=== PATIENT | female | born 1980 | race Caucasian/White ===

== ENCOUNTER 2020-08-30 06:05 | Observation (INO) | payer OTHER, SELFPAY ==
[2020-08-30] VITALS (14 sets, daily range): BP systolic 118–163; BP diastolic 74–118; PULSE 86–127; RESP 16–21; TEMP 36.6–36.8; O2SAT 92–98; BMI 33.3; BMI 32.8
--- NOTE | 2020-08-30 06:20 | PC.NURSE ---
Pt placed in isolation and staff with appropriate PPE in place.
--- NOTE | 2020-08-30 06:26 | XR_ITS ---
PROCEDURE: XR CHEST 2V CLINICAL HISTORY: shortness of air Chest tightness COMPARISON: CR CXR CHEST(2 VIEWS-NOT PORTABLE) from 01/23/2013 FINDINGS: The cardiomediastinal silhouette and pulmonary vascularity are within normal limits. The lungs are clear without infiltrates, suspicious nodules, or pleural effusions. No acute bony abnormalities. IMPRESSION: No acute findings. Dictated by: Nikhil Salcedo MD 08/30/2020 08:45 Nikhil Salcedo MD in [facility] 08/30/2020 08:45
--- NOTE | 2020-08-30 06:46 | PC.NURSE ---
called and spoke with respiratory for inhaler. jaya notified.
--- NOTE | 2020-08-30 06:52 | PC.NURSE ---
Report given to January, RN
[2020-08-30 06:53] LABS: Basophils # 0.1 K/mm3 (0-0.2); Basophils % 0.6 % (0.1-2.0); Eosinophils # 0.3 K/mm3 (0.0-0.4); Eosinophils % 2.8 % (0.1-12.0); Hematocrit 44.4 % (37.0-47.0); Hemoglobin 14.2 g/dL (12.2-16.2); Lymphocytes # 1.9 K/mm3 (0.7-4.5); Lymphocytes % 18.1 % (10-50); Mean Corpuscular Hemoglobin 27.3 pg (27.0-31.2); Mean Corpuscular Volume 85.4 fl (81-99); Mean Platelet Volume 7.6 fl (7.4-10.4); Monocytes # 0.5 K/mm3 (0.1-1.0); Monocytes % 4.6 % (1.7-9.3); Neutrophils # 7.8 K/mm3 (1.8-7.8); Neutrophils % 73.8 % (37.0-80.0); Platelet Count 268 K/mm3 (142-424); White Blood Count 10.6 K/mm3 (4.8-10.8)
--- NOTE | 2020-08-30 07:30 | PC.NURSE ---
Pt to restroom at this time. Covid swab will be delayed. Pt was swabbed prior to dayshift coming and but there was no order for it. order placed at this time.
[2020-08-30 07:34] LABS: Chloride 100 mmol/L (98-107); Potassium 3.7 mmoL/L (3.5-5.1); Sodium 137 mmol/L (136-145)
[2020-08-30 07:37] LABS: Microscopic, Urine URINE MICROSCOPIC (MICROSCOPIC)
[2020-08-30 07:37] LABS: Adenovirus,PCR Not Detected (NotDetected); Anion Gap 17.7 mEq/L (5-15); Blood Urea Nitrogen 12 mg/dl (7-17); Bordetella Pertussis Not Detected (NotDetected); Carbon Dioxide 23 mmol/L (22.0-30.0); Chlamydophila Pneumoniae, PCR Not Detected (NotDetected); Coronavirus 19, PCR Not Detected (NotDetected); Coronavirus 229E Not Detected (NotDetected); Coronavirus NL63 Not Detected (NotDetected); Coronavirus OC43 Not Detected (NotDetected); Coronovirus HKU1,PCR Not Detected (NotDetected); Creatinine Clearance Estimated 133 mL/min (50-200); Estimated Glomerular Filt Rate 79 ml/min (>60); GFR (African American) 96 ML/MIN (>60); Human Metapneumovirus Not Detected (NotDetected); Influenza A, PCR Not Detected (NotDetected); Influenza AH1, 2009 Not Detected (NotDetected); Influenza AH1, PCR Not Detected (NotDetected); Influenza AH3,PCR Not Detected (NotDetected); Influenza B, PCR Not Detected (NotDetected); Mycoplasma Pneumoniae, PCR Not Detected (NotDetected); Parainfluenza 1, PCR Not Detected (NotDetected); Parainfluenza 2, PCR Not Detected (NotDetected); Parainfluenza 3, PCR Not Detected (NotDetected); Parainfluenza 4, PCR Not Detected (NotDetected); Respiratory Syncytial Virus Not Detected (NotDetected)
[2020-08-30 07:38] LABS: Calcium 10.4 mg/dl (8.4-10.2); Glucose 144 mg/dl (74-100)
[2020-08-30 07:48] LABS: Appearance,Urine CLEAR (Clear); Bilirubin,Urine Negative (Negative); Blood, Urine Negative (Negative); Color,Urine YELLOW (Yellow); Glucose,Urine (UA) Negative (Negative); Ketones,Urine Negative (Negative); Leukocyte Esterase,Urine Negative (Negative); Nitrate,Urine Negative (Negative); PH,Urine 5.5 (5.0-8.5); Protein,Urine Negative (Negative); Specific Gravity, Urine <= 1.005 (1.005-1.030); Urobilinogen,Urine 0.2 EU/dl (0.2)
[2020-08-30 07:49] LABS: Urine Pregnancy, HCG Qual. Negative (Negative)
[2020-08-30 07:50] LABS: RBC,Urine Occasional #/hpf (0-3)
[2020-08-30 07:51] LABS: Alanine Aminotransferase 101 U/L (12-78); Albumin Level 4.8 g/dl (3.5-5.0); Alkaline Phosphatase 121 U/L (38-126); Aspartate Amino Transferase 161 U/L (14-36); Bilirubin,Direct 0.2 mg/dl (0.0-0.4); Bilirubin,Indirect 0.5 mg/dL (0.0-0.9); Bilirubin,Total 0.7 mg/dl (0.2-1.3); Bilirubin,Unconjugated 0.5 mg/dL (0.0-1.1); Total Protein,Serum 8.6 g/dl (6.3-8.2)
[2020-08-30 07:55] LABS: Free T4 (Free Thyroxine) 1.43 ng/dl (0.78-2.19)
[2020-08-30 08:05] LABS: Coronavirus 19 IgG Antibody Negative (Negative); Coronavirus 19 IgM Antibody Negative (Negative)
[2020-08-30 08:08] LABS: Thyroid Stimulating Hormone 5.71 uIU/mL (0.465-4.68)
--- NOTE | 2020-08-30 08:15 | HMH.EDGENADL ---
ED Disposition Clinical Impression: Pneumonia Qualifiers: Pneumonia type: due to Mycoplasma pneumoniae Laterality: right Lung location: lower lobe of lung Qualified Code(s): J15.7 - Pneumonia due to Mycoplasma pneumoniae Disposition: Admitted as Observation Condition on Discharge: Fair Time of Disposition: 11:23 - Critical Care Critical Care Time: No Attestation: On 08/30/20, the high probability of a clinically significant, sudden or life threatening deterioration of the following system(s) required my full and direct attention, intervention and personal management. The time I documented below is in addition to time spent performing reported procedures but includes the following listed in this critical care notation. Medical Decision Making - Medical Records Medical records reviewed: Yes: I reviewed the patient's medical records. - Avni Inquiry Pt receiving controlled substance: No Vital Signs: 08/30/20 06:17 08/30/20 07:19 08/30/20 08:04 Temperature 97.9 F Temperature Source Oral Pulse Rate [Right Brachial] 109 H 102 H 116 H Respiratory Rate 16 Blood Pressure [Right Arm] 160/111 H 157/106 H 153/87 H Blood Pressure Mean [Right Arm] 127 123 109 Blood Pressure Source [Right Arm] Automatic Cuff Automatic Cuff Automatic Cuff Blood Pressure Position [Right Arm] Sitting Sitting Sitting 02 Sat by Pulse Oximetry 97 98 94 L Oxygen Delivery Method Room Air Room Air Room Air 08/30/20 08:30 08/30/20 09:01 08/30/20 09:46 Temperature Temperature Source Pulse Rate [Right Brachial] 119 H 114 H 96 H Respiratory Rate Blood Pressure [Right Arm] 148/100 H 136/96 H 133/87 Blood Pressure Mean [Right Arm] 116 109 102 Blood Pressure Source [Right Arm] Automatic Cuff Automatic Cuff Automatic Cuff Blood Pressure Position [Right Arm] Sitting Sitting Sitting 02 Sat by Pulse Oximetry 92 L 95 95 Oxygen Delivery Method Room Air Room Air Room Air 08/30/20 10:00 08/30/20 10:30 08/30/20 11:11 Temperature Temperature Source Pulse Rate [Right Brachial] 112 H 113 H 115 H Respiratory Rate Blood Pressure [Right Arm] 163/118 H 147/91 H Blood Pressure Mean [Right Arm] 133 109 Blood Pressure Source [Right Arm] Automatic Cuff Automatic Cuff Blood Pressure Position [Right Arm] Sitting Sitting 02 Sat by Pulse Oximetry 97 94 L 93 L Oxygen Delivery Method Room Air Room Air Room Air 08/30/20 11:47 Temperature Temperature Source Pulse Rate [Right Brachial] 112 H Respiratory Rate Blood Pressure [Right Arm] 142/93 H Blood Pressure Mean [Right Arm] 109 Blood Pressure Source [Right Arm] Automatic Cuff Blood Pressure Position [Right Arm] Sitting 02 Sat by Pulse Oximetry 95 Oxygen Delivery Method Room Air - Lab Data Lab Results 08/30/20 06:30: Troponin I < 0.01, C-Reactive Protein 22.4 H 08/30/20 06:32: WBC 10.6, RBC 5.20, Hgb 14.2, Hct 44.4, MCV 85.4, MCH 27.3, MCHC 32.0, RDW 13.0, Plt Count 268, MPV 7.6, Neut % (Auto) 73.8, Lymph % (Auto) 18.1, [place] % (Auto) 4.6, Eos % (Auto) 2.8, Baso % (Auto) 0.6, Neut # (Auto) 7.8, Lymph # (Auto) 1.9, [place] # (Auto) 0.5, Eos # (Auto) 0.3, Baso # (Auto) 0.1 08/30/20 06:32: Sodium 137, Potassium 3.7, Chloride 100, Carbon Dioxide 23, Anion Gap 17.7 H, BUN 12, Creatinine 0.80, Estimated Creat Clear 133, Estimated GFR 79, Est GFR ( Amer) 96, Glucose 144 H, Calcium 10.4 H, TSH 5.71 H 08/30/20 06:32: Free T4 1.43 08/30/20 06:32: Total Bilirubin 0.7, Direct Bilirubin 0.2, Conjugated Bilirubin 0.0, Indirect Bilirubin 0.5, Unconjugated Bilirubin 0.5, AST 161 H, ALT 101 H, Alkaline Phosphatase 121, Total Protein 8.6 H, Albumin 4.8 08/30/20 06:32: Chlamy pneumoniae PCR Not detected, Adenovirus (PCR) Not detected, B. pertussis DNA (PCR) Not detected, Coronavirus OC43 (PCR) Not detected, Coronavirus HKU1 (PCR) Not detected, Coronavirus 229E (PCR) Not detected, SARS-CoV-2 (PCR) Not detected, Coronavirus NL63 (PCR) Not detected, Human Metapneumovir PCR Not detected, Influenza A (H1) PCR No
[2020-08-30 10:20] LABS: Rhinovirus/Enterovirus Detected (NotDetected)
--- NOTE | 2020-08-30 11:21 | PC.NURSE ---
Dr Azevedo speaking with Dr Sanchez about a possible admission.
--- NOTE | 2020-08-30 11:30 | ECG_ITS ---
APPROVED REPORT Exam: Resting ECG HR:107 bpm ECG Measurements Heart Rate 107 AXES VA 156 P 52 QRSd 92 QRS 56 QT 378 T 65 QTc 504 Conclusion Sinus tachycardia Otherwise normal ECG Electronically signed by : Derian Brito, 08/30/2020 19:47:58
--- NOTE | 2020-08-30 11:36 | ECG_ITS ---
APPROVED REPORT Exam: Resting ECG HR:71 bpm ECG Measurements Heart Rate 71 AXES NV 146 P 63 QRSd 78 QRS 36 QT 458 T 40 QTc 497 Conclusion Normal sinus rhythm right atrial abnormality Prolonged QT Abnormal ECG Electronically signed by : Derian Brito, 08/30/2020 19:47:46
[2020-08-30 11:51] LABS: C-Reactive Protein 22.4 mg/L (0-4)
[2020-08-30 12:02] LABS: Troponin I < 0.01 ng/ml (0.00-0.034)
[2020-08-30 12:11] LABS: Erythrocyte Sedimentation Rate 6 mm/hr (0-20)
--- NOTE | 2020-08-30 12:33 | HMH.PHAVTE ---
[facility] Pharmacy VTE Monitoring - Patient Demographics Admission date: 08/30/20 Report Date: 08/30/20 Time: 12:33 Allergies/Adverse Reactions: Patient Allergies amoxicillin [AMOXICILLIN] Allergy (Mild, Verified 11/06/18 09:35) latex [LATEX] Allergy (Mild, Verified 11/06/18 09:35) methadone [METHADONE] Allergy (Mild, Verified 11/06/18 09:35) morphine [MORPHINE] Allergy (Mild, Verified 11/06/18 09:35) Penicillins [PENICILLINS] Allergy (Mild, Verified 11/06/18 09:35) Height: 1.65 m Weight: 90.718 kg Patient Problems: Current Active Problems Pneumonia (Acute) - VTE Risk Labs: VTE Related Lab Results Hgb 14.2 g/dL (12.2-16.2) 08/30/20 06:32 Hct 44.4 % (37.0-47.0) 08/30/20 06:32 Plt Count 268 K/mm3 (142-424) 08/30/20 06:32 BUN 12 mg/dl (7-17) 08/30/20 06:32 Creatinine 0.80 mg/dl (0.52-1.04) 08/30/20 06:32 Estimated Creat Clear 133 mL/min (50-200) 08/30/20 06:32 - Prophylaxis VTE Prophylaxis Ordered?: Yes Types of VTE Prophylaxis: TEDS Knee High Location of Applied Device: Bilateral Lower Extremeties
--- NOTE | 2020-08-30 13:26 | HMH.PHAINT ---
Medication reconciliation completed using medication list from physician office and pharmacy claims data.
--- NOTE | 2020-08-30 17:10 | HMH.HP ---
*Admission Date: 08/30/20 *Chief complaint: chest pain, SOA *History of present illness: Ms. Stuart is a pleasant 39-year-old female with recent diagnosis of diabetes. She presented to the ER because of worsening cough, fatigue, chills. Patient clinically stable on arrival. Initial assessment concerning for tachycardia with complaint of chest discomfort. Work-up included CBC, CMP, chest x-ray, Covid swab. Patient given IV fluid bolus. Labs significant for elevated liver enzymes, negative Covid, positive enterovirus. Chest x-ray showed hazy right perihilar opacification concerning for atypical pneumonia versus viral pneumonia. Continue to be symptomatic after fluid bolus and had worsening chest discomfort. Given increased symptomatology, respiratory distress, and failure of outpatient therapy before coming to the ER, decision was made to admit patient. Admitted to medicine for further management. Started on 650 Tylenol, 500 mg azithromycin, 100 mg doxycycline. On assessment after arriving to the floor, patient states she has been sick since . Having cough and shortness of breath over the weekend. Was tested for Covid and flu over the weekend, both were negative. Continued to have cough and progressive respiratory symptoms with scant production of sputum. Developed chest discomfort and soreness over the past 24 to 48 hours. Tender to palpation per her report. Denies any GI symptoms above her baseline as she has irritable bowel syndrome. at bedside. [facility] History I have reviewed the patient's past medical history: Yes Medical History: Reports:: Diabetes Mellitus Type 2, Hyperlipidemia, Hypertension Denies:: Cancer, MRSA *Have you ever received a pneumonia vaccine?: Yes *Have you received a flu vaccine this season?: Yes Other Surgeries: Yes: Appendectomy, Hysterectomy-Total, Thyroidectomy Amputation: No Fractures: No - *Social History Last grade of school completed: Advanced degree Smoking Status: Never smoker Alcohol Intake: never *Occupational Status:: employed Housing: house Household Members: children *Travel in the last 8 weeks: None Family Hx:: Diabetes, Heart Attack, Hyperlipidemia, Hypertension Review of Systems - Review of Systems Review of systems:: pertinent systems reviewed and negative unless documented below (14 point review of systems performed, pertinent positives and negatives as per HPI) - *Neurologic Denies headache(s) Meds Home Medications Medication Instructions Recorded Confirmed Type Azithromycin [Z-Bryce 250mg Tab] 250 mg PO DIRECTED #6 tab 08/30/20 Rx Dicyclomine HCl [Bentyl 10mg 10 mg PO QID PRN 08/30/20 History capsule] Doxycycline Hyclate [Doxycycline 100 mg PO BID 5 Days #10 cap 08/30/20 Rx 100mg Capsule] Escitalopram Oxalate [Lexapro] 10 mg PO DAILY 08/30/20 08/30/20 History Levothyroxine Sodium 25 mcg PO DAILY 08/30/20 08/30/20 History [Levothyroxine 25mcg (0.025mg) Tab] Loratadine [Claritin] 10 mg PO DAILY 08/30/20 08/30/20 History Losartan Potassium 25 mg PO DAILY 08/30/20 08/30/20 History Metformin HCl 500 mg PO DIRECTED 08/30/20 08/30/20 History Omeprazole [Omeprazole 20mg 20 mg PO DAILY 08/30/20 History Capsule] Allergies Allergy/AdvReac Type Severity Reaction Status Date / Time amoxicillin [AMOXICILLIN] Allergy Mild Verified 11/06/18 09:35 latex [LATEX] Allergy Mild Verified 11/06/18 09:35 methadone [METHADONE] Allergy Mild Verified 11/06/18 09:35 morphine [MORPHINE] Allergy Mild Verified 11/06/18 09:35 Penicillins [PENICILLINS] Allergy Mild Verified 11/06/18 09:35 Exam Vital signs and Labs for Last 24 Hours: Temp Pulse Resp BP Pulse Ox 98.2 F 95 H 18 119/76 92 L 08/30/20 16:00 08/30/20 16:00 08/30/20 16:00 08/30/20 16:00 08/30/20 16:00 Laboratory Results - last 24 hr 08/30/20 06:30: Troponin I < 0.01, C-Reactive Protein 22.4 H 08/30/20 06:30: ESR 6 08/30/20 06:32: WBC 10.6, RBC 5.20, Hgb
[2020-08-31] VITALS: BP 118/79; PULSE 94; RESP 19; TEMP 36.7; O2SAT 91
[2020-08-31 04:00] VITALS: BP 116/72; PULSE 75; RESP 18; TEMP 36.6; O2SAT 92
--- NOTE | 2020-08-31 04:06 | PC.NURSE ---
Pt is A&Ox4. Lung sounds diminished t/o per auscultation with scattered expiratory wheezing noted. IS brought into pt's room and pt was educated on use. At best, pt can reach 2,000 on IS. Pt has complained of chest pain x1 this shift that radiates to back muscles due to coughing. PRN pain meds administered per DEC. Pt has had a nonproductive cough intermittently this shift. Bowel sounds active in all 4 quads. Pt ambulates self to the restroom w/o difficulty. Pt is urinating clear, yellow urine. No other acute changes or complaints at this time. Will continue to monitor.
[2020-08-31 05:02] VITALS: BMI 34.9
[2020-08-31 07:24] LABS: Chloride 110 mmol/L (98-107); Sodium 137 mmol/L (136-145)
[2020-08-31 07:25] LABS: Potassium 4.4 mmoL/L (3.5-5.1)
[2020-08-31 07:27] LABS: Blood Urea Nitrogen 8 mg/dl (7-17); Creatinine Clearance Estimated 185 mL/min (50-200); Estimated Glomerular Filt Rate 110 ml/min (>60); GFR (African American) 133 ML/MIN (>60)
[2020-08-31 07:28] LABS: Anion Gap 13.4 mEq/L (5-15); Carbon Dioxide 18 mmol/L (22.0-30.0); Glucose 215 mg/dl (74-100)
--- NOTE | 2020-08-31 07:31 | HMH.DCSUM ---
General - General Admission date:: 08/30/20 Discharge date: 08/31/20 HPI HPI: Ms. Stuart is a pleasant 39-year-old female with recent diagnosis of diabetes. She presented to the ER because of worsening cough, fatigue, chills. Patient clinically stable on arrival. Initial assessment concerning for tachycardia with complaint of chest discomfort. Work-up included CBC, CMP, chest x-ray, Covid swab. Patient given IV fluid bolus. Labs significant for elevated liver enzymes, negative Covid, positive enterovirus. Chest x-ray showed hazy right perihilar opacification concerning for atypical pneumonia versus viral pneumonia. Continue to be symptomatic after fluid bolus and had worsening chest discomfort. Given increased symptomatology, respiratory distress, and failure of outpatient therapy before coming to the ER, decision was made to admit patient. Admitted to medicine for further management. Started on 650 Tylenol, 500 mg azithromycin, 100 mg doxycycline. On assessment after arriving to the floor, patient states she has been sick since . Having cough and shortness of breath over the weekend. Was tested for Covid and flu over the weekend, both were negative. Continued to have cough and progressive respiratory symptoms with scant production of sputum. Developed chest discomfort and soreness over the past 24 to 48 hours. Tender to palpation per her report. Denies any GI symptoms above her baseline as she has irritable bowel syndrome. at bedside. Hospital Course Hospital Course: Patient was admitted, PCR panel was negative for coronavirus 19 but positive for rhino/enterovirus. She was treated symptomatically for viral pneumonia with azithromycin coverage for atypical organisms. She did well with this and improved with diminishing oxygen requirement overnight. This morning other than a mild headache she felt good, eating and drinking well and she will be discharged home. Because of her contagiousness she will be restricted from work until Saturday. She will follow with her primary nurse practitioner in [place]. Objective Vital signs: Temp Pulse Resp BP Pulse Ox 97.8 F 75 18 116/72 92 L 08/31/20 04:00 08/31/20 04:00 08/31/20 04:00 08/31/20 04:00 08/31/20 04:00 no acute distress - *Routine HEENT Exam Head: Present: normocephalic Eye: Present: EOMI, PERRL ENT: Present: mucous membranes moist - *Routine Neck Exam Present: supple - *Routine Respiratory Exam Present: CTA bilaterally - *Routine Cardiovascular Exam Present: RRR - *Routine Abdominal Exam Present: soft, normoactive bowel sounds. Absent: tenderness - *Routine Extremities Exam Absent: cyanosis, clubbing, edema - *Routine Skin Exam Present: warm. Absent: rash - Detailed Eye Exam Eyelids: Bilateral normal inspection Results Labs on day of discharge: Labs from last 24 hours 08/30/20 08/30/20 08/30/20 07:31 07:31 06:32 ESR Sodium Potassium Chloride Carbon Dioxide Anion Gap BUN Creatinine Estimated Creat Clear Estimated GFR Est GFR ( Amer) Glucose Calcium Total Bilirubin Direct Bilirubin Conjugated Bilirubin Indirect Bilirubin Unconjugated Bilirubin AST ALT Alkaline Phosphatase Troponin I C-Reactive Protein Total Protein Albumin TSH Free T4 Urine Color Yellow Urine Appearance Clear Urine pH 5.5 Ur Specific Lykens <= 1.005 Urine Protein Negative Urine Glucose (UA) Negative Urine Ketones Negative Urine Blood Negative Urine Nitrate Negative Urine Bilirubin Negative Urine Urobilinogen 0.2 Ur Leukocyte Esterase Negative Urine RBC Occasional Urine WBC 3-5 Ur Squamous Epith Cells 3-5 Urine HCG, Qual Negative Chlamy pneumoniae PCR Adenovirus (PCR) B. pertussis DNA (PCR) Coronavirus OC43 (PCR) Coronavirus HKU1 (PCR) Coronavir
[2020-08-31 07:36] LABS: Basophils % 0.2 % (0.1-2.0); Hematocrit 40.2 % (37.0-47.0); Hemoglobin 12.7 g/dL (12.2-16.2); Lymphocytes # 0.9 K/mm3 (0.7-4.5); Lymphocytes % 5.6 % (10-50); Mean Corpuscular HGB Conc 31.7 g/dL (31.8-35.4); Mean Corpuscular Hemoglobin 28.2 pg (27.0-31.2); Mean Corpuscular Volume 88.9 fl (81-99); Monocytes # 0.3 K/mm3 (0.1-1.0); Monocytes % 1.7 % (1.7-9.3); Neutrophils # 15.1 K/mm3 (1.8-7.8); Neutrophils % 92.3 % (37.0-80.0); Platelet Count 250 K/mm3 (142-424); Red Blood Count 4.52 M/mm3 (4.20-5.40); Red Cell Distribution Width 14.8 % (11.5-17.5); White Blood Count 16.3 K/mm3 (4.8-10.8)
[2020-08-31 07:49] LABS: MANUAL DIFFERENTIAL MANUAL DIFFERENTIAL (MANUAL DIFF)
[2020-08-31 07:51] LABS: Calcium 9.3 mg/dl (8.4-10.2)
[2020-08-31 08:00] VITALS: BP 148/85; PULSE 95; RESP 18; TEMP 36.6; O2SAT 97
[2020-08-31 11:30] LABS: Lymphocytes % 5 % (10-50); Monocytes % 3 % (2-9); Neutrophils % 92 % (42-76); Platelet Estimate Normal; RBC Morphology Normal; Total Cells Counted 100
== END 2020-08-31 09:20 | disposition home or self-care (01) ==
LOC: ER 11:23 → 2ND 08-31 07:12
PROVIDERS: Emergency Medicine; Admitting Provider Internal Medicine Adolescent Medicine; Emergency Provider Emergency Medicine; PCP Nurse Practitioner Family; Visit Provider Internal Medicine Adolescent Medicine
DX: J18.9 Pneumonia, unspecified organism (principal); I10 Essential (primary) hypertension; E78.5 Hyperlipidemia, unspecified; E11.9 Type 2 diabetes mellitus without complications; Z79.84 Long term (current) use of oral hypoglycemic drugs; Z88.0 Allergy status to penicillin; Z88.2 Allergy status to sulfonamides; Z88.8 Allergy status to other drugs, medicaments and biological substances
CPT/HCPCS: 36415; 71046; 80048; 80076; 81001; 81025; 84439; 84443; 84484; 85007; 85025; 85651; 86140; 86328; 87581; 87633; 87798; 93005; 96365; 96366; 96375; 99284; G0378; J0456

== ENCOUNTER 2021-02-20 13:04 | Emergency (ER) | payer MEDICAID, SELFPAY ==
[2021-02-20 13:44] VITALS: BP 135/81; PULSE 80; RESP 16; TEMP 36.6; O2SAT 97; BMI 31.6
[2021-02-20 14:10] LABS: UTC Strep Screen (Rapid) Positive (Negative)
--- NOTE | 2021-02-20 14:42 | HMH.EDUTC ---
[facility] Disposition Clinical Impression: Strep throat Disposition: Home, Self-Care Condition on Discharge: Good Instructions: Strep Throat, DI for Strep Throat Additional Instructions: Drink plenty of fluids. Take tylenol or ibuprofen for pain or fever. Take the medications as directed. Follow up with your regular doctor. GO TO THE ER FOR ANY WORSENING SYMPTOMS Prescriptions: Azithromycin [Z-Bryce 250mg Tab*] 250 mg PO UD DOSE PK #6 tab Transmission Status: Received by [facility]/pharmacy #[id number] Referrals: Stefani Toledo [Primary Care Provider] - Forms: Work/School Release Time of Disposition: 14:46 Medical Decision Making - Medical Records Medical records reviewed: No: I reviewed the patient's medical records. - Avni Inquiry Pt receiving controlled substance: No Vital Signs: 02/20/21 13:44 02/20/21 14:50 Temperature 97.8 F 97.8 F Temperature Source Oral Pulse Rate 87 Pulse Rate [Right] 80 Respiratory Rate 16 16 Blood Pressure 131/84 Blood Pressure [Right Arm] 135/81 Blood Pressure Mean [Right Arm] 99 02 Sat by Pulse Oximetry 97 Oxygen Delivery Method Room Air - Lab Data Lab results reviewed: Yes: I reviewed the patient's lab results. Lab Results 02/20/21 14:09: Strep Scn Rapid Clinic Positive A [facility] [place] HPI - General Stated complaint: sore throat Time Seen by Provider: 02/20/21 14:42 Mode of Arrival: Ambulatory Source of Information: Patient Limitations: No Limitations Description of Symptoms (Recalled from Triage Doc. by RN): sore throat. daughter has strep. HEENT Symptoms (Recalled from RN notes): Yes (sore throat) Resp Symptoms (Recalled from RN notes): No Skin Symptoms (Recalled from RN notes): No MS Symptoms (Recalled from RN notes): No Functional Status (Recalled from RN notes): na - History of Present Illness Provider Complaint: She c/o sore throat and feeling bad for the past 2 days. Her children have had strep throat recently. - Related Data Home Medications Medication Instructions Recorded Confirmed Dicyclomine HCl [Bentyl 10mg 10 mg PO QID PRN 08/30/20 08/31/20 capsule] Escitalopram Oxalate [Lexapro] 10 mg PO DAILY 08/30/20 08/30/20 Levothyroxine Sodium 25 mcg PO DAILY 08/30/20 08/30/20 [Levothyroxine 25mcg (0.025mg) Tab] Loratadine [Claritin] 10 mg PO DAILY 08/30/20 08/30/20 Losartan Potassium 25 mg PO DAILY 08/30/20 08/30/20 Metformin HCl 500 mg PO DIRECTED 08/30/20 08/30/20 Omeprazole [Omeprazole 20mg 20 mg PO DAILY 08/30/20 08/31/20 Capsule] Previous Rx's Medication Instructions Recorded Azithromycin [Z-Bryce 250mg Tab] 250 mg PO DIRECTED #6 tab 08/30/20 Doxycycline Hyclate [Doxycycline 100 mg PO BID 5 Days #10 cap 08/30/20 100mg Capsule] Promethazine/Dextromethorphan 5 ml PO Q6HP PRN #240 ml 08/31/20 [Promethazine-Dm Syrup] predniSONE [Deltasone 20mg 20 mg PO BID 7 Days #14 tab 08/31/20 tablet] Azithromycin [Z-Bryce 250mg Tab*] 250 mg PO UD DOSE PK #6 tab 02/20/21 Allergies Allergy/AdvReac Type Severity Reaction Status Date / Time amoxicillin [AMOXICILLIN] Allergy Mild Verified 02/20/21 13:49 latex [LATEX] Allergy Mild Verified 02/20/21 13:49 methadone [METHADONE] Allergy Mild Verified 02/20/21 13:49 morphine [MORPHINE] Allergy Mild Verified 02/20/21 13:49 Penicillins [PENICILLINS] Allergy Mild Verified 02/20/21 13:49 - Worker's Comp Is this a Worker's Comp case?: No H History - Hepatitis A Screen Drug use history?: No High risk sexual behaviors?: No History of sexually transmitted infection?: No Currently employed?: No Childcare worker?: No Do you have indoor plumbing?: Yes Do you have electricity?: Yes Attestation statement:: This patient has been screened for Hepatitis A risk factors. I have reviewed the patient's past medical history: Yes Medical History: Reports:: Diabetes Mellitus Type 2, Hyperlipidemia, Hypertension Denies:: Cancer, MRSA Other Surgeries: Yes: Appendecto
[2021-02-20 14:50] VITALS: BP 131/84; PULSE 87; RESP 16; TEMP 36.6
== END 2021-02-20 14:50 | disposition home or self-care (01) ==
PROVIDERS: Emergency Provider Nurse Practitioner Family; PCP Nurse Practitioner Family
DX: J02.0 Streptococcal pharyngitis (principal); E11.9 Type 2 diabetes mellitus without complications; E78.5 Hyperlipidemia, unspecified; I10 Essential (primary) hypertension; Z79.899 Other long term (current) drug therapy; Z88.0 Allergy status to penicillin; Z88.5 Allergy status to narcotic agent
CPT/HCPCS: 87880; 99202; G0463

== ENCOUNTER 2022-03-04 12:05 | Emergency (ER) | payer BC, MEDICAID, SELFPAY ==
[2022-03-04] VITALS (13 sets, daily range): BP systolic 103–141; BP diastolic 71–97; PULSE 79–111; RESP 16–18; TEMP 36.8–36.9; O2SAT 93–98; BMI 31.2
--- NOTE | 2022-03-04 12:20 | PC.NURSE ---
Dr. Moy at [facility]
--- NOTE | 2022-03-04 12:27 | XR_ITS ---
PROCEDURE INFORMATION: Exam: XR Chest Exam date and time: 03/04/2022 12:50 PM Age: 41 years old Clinical indication: Shortness of breath; Additional info: SOA TECHNIQUE: Imaging protocol: XR of the chest. Views: 1 view. COMPARISON: CR XR CHEST 2V 08/30/2020 6:45 AM FINDINGS: Lungs: Unremarkable. No consolidation. Pleural spaces: Unremarkable. No pleural effusion. No pneumothorax. Heart/Mediastinum: Unremarkable. No cardiomegaly. Bones/joints: Unremarkable. IMPRESSION: No acute findings.
--- NOTE | 2022-03-04 12:27 | ECG_ITS ---
APPROVED REPORT Exam: Resting ECG HR:96 bpm ECG Measurements Heart Rate 96 AXES LA 149 P 38 QRSd 98 QRS 0 QT 365 T 42 QTc 419 Conclusion SINUS RHYTHM NORMAL ECG UNCONFIRMED REPORT Electronically signed by : Derian Brito MD 03/05/2022 09:40:25
--- NOTE | 2022-03-04 12:46 | PC.NURSE ---
DMITRI Ca at [facility]
[2022-03-04 12:57] LABS: Basophils # 0.2 K/mm3 (0-0.2); Eosinophils # 0.2 K/mm3 (0.0-0.4); Eosinophils % 2.4 % (0.1-12.0); Hematocrit 42.9 % (37.0-47.0); Hemoglobin 14.7 g/dL (12.2-16.2); Lymphocytes # 2.1 K/mm3 (0.7-4.5); Lymphocytes % 22.1 % (10-50); Mean Corpuscular HGB Conc 34.2 g/dL (31.8-35.4); Mean Corpuscular Hemoglobin 28.2 pg (27.0-31.2); Mean Corpuscular Volume 82.6 fl (81-99); Mean Platelet Volume 9.2 fl (7.4-10.4); Monocytes # 0.4 K/mm3 (0.1-1.0); Monocytes % 4.6 % (1.7-9.3); Neutrophils # 6.4 K/mm3 (1.8-7.8); Neutrophils % 68.9 % (37.0-80.0); Platelet Count 277 K/mm3 (142-424); Red Cell Distribution Width 14.1 % (11.5-17.5); White Blood Count 9.3 K/mm3 (4.8-10.8)
--- NOTE | 2022-03-04 12:59 | PC.NURSE ---
Conchis Pizano, RN at
--- NOTE | 2022-03-04 13:16 | PC.NURSE ---
ED MD at
[2022-03-04 13:38] LABS: Alanine Aminotransferase 63 U/L (12-78); Albumin Level 4.5 g/dl (3.5-5.0); Albumin/Globulin Ratio 1.4 (1.1-1.8); Alkaline Phosphatase 87 U/L (38-126); Anion Gap 14.6 mEq/L (5-15); Aspartate Amino Transferase 66 U/L (14-36); Bilirubin,Total 0.6 mg/dl (0.2-1.3); Blood Urea Nitrogen 9 mg/dl (7-17); Calcium 9.8 mg/dl (8.4-10.2); Carbon Dioxide 23 mmol/L (22.0-30.0); Chloride 102 mmol/L (98-107); Creatinine Clearance Estimated 163 mL/min (50-200); Estimated Glomerular Filt Rate 109 ml/min (>60); GFR (African American) 132 ML/MIN (>60); Globulin 3.3 g/dL (1.3-3.2); Glucose 204 mg/dl (74-100); Potassium 3.6 mmoL/L (3.5-5.1); Sodium 136 mmol/L (136-145); Total Protein,Serum 7.8 g/dl (6.3-8.2)
--- NOTE | 2022-03-04 13:42 | HMH.EDGENADL ---
ED Disposition Clinical Impression: Shoulder pain Qualifiers: Chronicity: acute Laterality: left Qualified Code(s): M25.512 - Pain in left shoulder Disposition: Home, Self-Care Condition on Discharge: Fair Additional Instructions: Follow-up with your primary care physician. Take Tylenol Motrin for the pain. You may also use heat, and lidocaine patches. Be sure that you do not use heat over can patches can cause a medicine to get released to quickly. Return to the emergency department for any new or concerning symptoms. Referrals: Stefani Toledo [Primary Care Provider] - - Critical Care Critical Care Time: No Attestation: On 03/04/22, the high probability of a clinically significant, sudden or life threatening deterioration of the following system(s) required my full and direct attention, intervention and personal management. The time I documented below is in addition to time spent performing reported procedures but includes the following listed in this critical care notation. Medical Decision Making - Medical Records Medical records reviewed: Yes: I reviewed the patient's medical records. - Avni Inquiry Pt receiving controlled substance: No Avni was queried for this patient: No Vital Signs: 03/04/22 12:27 03/04/22 12:31 03/04/22 12:36 Temperature 98.2 F Temperature Source Oral Pulse Rate 103 H 106 H Pulse Rate [Right Radial] 111 H Respiratory Rate 18 Blood Pressure 132/97 H 125/90 Blood Pressure [Right Arm] 132/97 H Blood Pressure Mean Blood Pressure Mean [Right Arm] 108 Blood Pressure Source Automatic Cuff Automatic Cuff Blood Pressure Source [Right Arm] Automatic Cuff Blood Pressure Position Sitting Sitting Blood Pressure Position [Right Arm] Sitting 02 Sat by Pulse Oximetry 97 98 98 Oxygen Delivery Method Room Air Room Air Room Air 03/04/22 14:17 03/04/22 14:30 03/04/22 15:00 Temperature Temperature Source Pulse Rate 99 H 95 H 93 H Pulse Rate [Right Radial] Respiratory Rate Blood Pressure 135/89 128/88 117/79 Blood Pressure [Right Arm] Blood Pressure Mean 102 96 91 Blood Pressure Mean [Right Arm] Blood Pressure Source Blood Pressure Source [Right Arm] Blood Pressure Position Blood Pressure Position [Right Arm] 02 Sat by Pulse Oximetry 98 97 95 Oxygen Delivery Method 03/04/22 15:30 03/04/22 16:00 03/04/22 16:30 Temperature Temperature Source Pulse Rate 91 H 100 H 83 Pulse Rate [Right Radial] Respiratory Rate Blood Pressure 139/91 H 132/86 141/87 H Blood Pressure [Right Arm] Blood Pressure Mean 104 96 105 Blood Pressure Mean [Right Arm] Blood Pressure Source Automatic Cuff Blood Pressure Source [Right Arm] Blood Pressure Position Sitting Blood Pressure Position [Right Arm] 02 Sat by Pulse Oximetry 95 96 97 Oxygen Delivery Method Room Air 03/04/22 17:00 03/04/22 17:30 03/04/22 18:00 Temperature Temperature Source Pulse Rate 85 79 91 H Pulse Rate [Right Radial] Respiratory Rate Blood Pressure 113/78 110/75 110/71 Blood Pressure [Right Arm] Blood Pressure Mean 89 86 84 Blood Pressure Mean [Right Arm] Blood Pressure Source Blood Pressure Source [Right Arm] Blood Pressure Position Blood Pressure Position [Right Arm] 02 Sat by Pulse Oximetry 96 93 L 97 Oxygen Delivery Method Room Air 03/04/22 18:23 Temperature 98.4 F Temperature Source Pulse Rate 86 Pulse Rate [Right Radial] Respiratory Rate 16 Blood Pressure 103/71 L Blood Pressure [Right Arm] Blood Pressure Mean Blood Pressure Mean [Right Arm] Blood Pressure Source Blood Pressure Source [Right Arm] Blood Pressure Position Blood Pressure Position [Right Arm] 02 Sat by Pulse Oximetry Oxygen Delivery Method - Lab Data Lab results reviewed: Yes: I reviewed the patient's lab results. Lab Results 03/04/22 12:48: WBC 9.3, RBC 5.20, Hgb 14.7, Hct 42.9, MCV 82.6, MCH 28.2, MCHC 34.2, R
[2022-03-04 14:00] LABS: Troponin I < 0.01 ng/ml (0.00-0.034)
--- NOTE | 2022-03-04 14:19 | PC.NURSE ---
Hooked pt back up to monitor; she reports her pain is still there. She was given another warm blanket and her Nurse has been notified. No other needs at this time
--- NOTE | 2022-03-04 16:28 | PC.NURSE ---
Notified lab to see if they can draw 2nd troponin
--- NOTE | 2022-03-04 16:46 | PC.NURSE ---
Lab at [facility] for 2nd troponin
[2022-03-04 17:25] LABS: Troponin I 0.02 ng/ml (0.00-0.034)
== END 2022-03-04 18:25 | disposition home or self-care (01) ==
PROVIDERS: Emergency Provider Emergency Medicine; PCP Nurse Practitioner Family
DX: M25.512 Pain in left shoulder (principal); E11.9 Type 2 diabetes mellitus without complications; I10 Essential (primary) hypertension; E78.5 Hyperlipidemia, unspecified; Z79.899 Other long term (current) drug therapy
CPT/HCPCS: 71045; 80053; 84484; 85025; 96374; 96375; 99284

== ENCOUNTER 2022-06-20 12:09 | Emergency (ER) | payer BC, MEDICAID, SELFPAY ==
[2022-06-20 12:41] VITALS: BP 129/94; PULSE 72; RESP 18; TEMP 36.7; O2SAT 97; BMI 34.4
[2022-06-20 12:43] LABS: UTC Strep Screen (Rapid) Negative (Negative)
--- NOTE | 2022-06-20 12:50 | EXP.UTC ---
Discharge Plan Disposition Patient Disposition: Home, Self-Care Condition: Good Prescriptions Prescriptions: New azithromycin [Zithromax] 250 mg tablet 250 mg PO UD DOSE PK Qty: 6 0RF Rx Instructions: Take two (2) tablets today, then one (1) tablet days #2 thru #5 benzonatate [benzonatate] 100 mg capsule 100 mg PO TIDP PRN (Reason: Cough) Qty: 30 0RF No Action azithromycin 250 MG tablet 250 mg PO UD DOSE PK Qty: 6 0RF Rx Instructions: Take two (2) tablets today, then one (1) tablet days #2 thru #5 metformin 500 MG tablet 500 mg PO DIRECTED Rx Instructions: 1 tablet by mouth every day with evening meal levothyroxine 25 MCG tablet 25 mcg PO DAILY losartan 25 MG tablet 25 mg PO DAILY escitalopram oxalate 10 MG tablet 10 mg PO DAILY loratadine 10 MG capsule 10 mg PO DAILY azithromycin 250 MG tablet 250 mg PO DIRECTED Qty: 6 0RF Rx Instructions: Take two (2) tablets on day #1, then one (1) tablet day #2 thru #5 doxycycline hyclate 100 MG capsule 100 mg PO BID 5 Days Qty: 10 0RF omeprazole 20 MG capsule,delayed release(DR/EC) 20 mg PO DAILY dicyclomine 10 MG capsule 10 mg PO QID PRN (Reason: Abdominal pain) prednisone 20 MG tablet 20 mg PO BID 7 Days Qty: 14 0RF promethazine-DM 120 ML syrup 5 ml PO Q6HP PRN (Reason: Cough) Qty: 240 0RF Referrals Follow up/Referrals: Stefani Toledo [Primary Care Provider] - See instructions Activity Restrictions/Add. Instructions Additional Instructions/Restrictions: Drink plenty of fluids. Take tylenol or ibuprofen for pain or fever. Take the medications as directed. Follow up with your regular doctor. GO TO THE ER FOR ANY WORSENING SYMPTOMS Quarantine until you know the results of your covid-19 test. Notify your school or workplace of your results and follow their instructions regarding return to work/school. Clinical Impressions Clinical Impression: Pharyngitis, Acute viral syndrome Stand Alone Forms Stand Alone Forms: Work/School Release Instructions Patient Instructions: DI for Pharyngitis/Tonsillopharyngitis -- Adult, Preventing the Spread of Coronavirus Discharge Instructions Discharge ED Provider: Donavan Colvin [facility] [place] General Stated complaint: headache, sore throat, runny nose Mode of Arrival: Ambulatory Source of Information: Patient Limitations: No Limitations Time Seen by Provider: 06/20/22 12:47 Description of Symptoms (Recalled from Triage Doc. by RN): pt comes in with c/o sore throat, headache, runny nose. symptoms began yesterday. HEENT Symptoms (Recalled from RN notes): Yes Resp Symptoms (Recalled from RN notes): Yes Skin Symptoms (Recalled from RN notes): No MS Symptoms (Recalled from RN notes): No Functional Status (Recalled from RN notes): n/a History of Present Illness Provider Complaint: He c/o head ache and sore throat that began yesterday. Related Data Home Medications Medication Instructions Recorded Confirmed dicyclomine 10 mg capsule 10 mg PO QID PRN Abdominal pain 08/30/20 08/31/20 escitalopram oxalate 10 mg tablet 10 mg PO DAILY Depression 08/30/20 08/30/20 levothyroxine 25 mcg tablet 25 mcg PO DAILY Hypothyroidism 08/30/20 08/30/20 loratadine 10 mg capsule 10 mg PO DAILY Allergies 08/30/20 08/30/20 losartan 25 mg tablet 25 mg PO DAILY Hypertension 08/30/20 08/30/20 metformin 500 mg tablet 500 mg PO DIRECTED Diabetes 08/30/20 08/30/20 omeprazole 20 mg capsule,delayed 20 mg PO DAILY Acid reflux 08/30/20 08/31/20 release Previous Rx's Medication Instructions Recorded azithromycin 250 mg tablet 250 mg PO DIRECTED #6 tabs 08/30/20 doxycycline hyclate 100 mg capsule 100 mg PO BID 5 days #10 caps 08/30/20 prednisone 20 mg tablet 20 mg PO BID 7 days #14 tabs 08/31/20 promethazine-DM 6.25 mg-15 mg/5 mL 5 ml PO Q6HP PRN Cough #240 mL 08/31/20 oral syrup azithromycin 250 mg tablet 250 mg PO UD DOSE
[2022-06-20 13:08] VITALS: BP 129/94; PULSE 72; RESP 18; TEMP 36.7
== END 2022-06-20 13:18 | disposition home or self-care (01) ==
PROVIDERS: Emergency Provider Nurse Practitioner Family; PCP Nurse Practitioner Family
DX: J02.0 Streptococcal pharyngitis (principal)
CPT/HCPCS: 87880; 99212; C9803; G0463; U0003; U0005

== ENCOUNTER 2024-06-15 09:26 | Emergency (ER) | payer BC, SELFPAY ==
[2024-06-15 09:55] VITALS: BP 112/61; PULSE 122; RESP 20; TEMP 37.5; O2SAT 97; BMI 32.5
--- NOTE | 2024-06-15 10:04 | EXP.UTC ---
Discharge Plan Disposition Patient Disposition: Home, Self-Care Condition: Good Prescriptions Prescriptions: No Action metformin 500 MG tablet 500 mg PO DIRECTED Rx Instructions: 1 tablet by mouth every day with evening meal levothyroxine 25 MCG tablet 25 mcg PO DAILY lisinopril 10 mg tablet 10 mg PO DAILY Patient Comments: TAKE 1 TABLET BY MOUTH 1 TIME EACH DAY Ozempic 0.25 mg or 0.5 mg (2 mg/3 mL) pen injector 0.25 mg SQ WEEKLY Patient Comments: INJECT 0.25 MG SUBCUTANEOUSLY WEEKLY Referrals Follow up/Referrals: Stefani Toledo [Primary Care Provider] - See instructions Activity Restrictions/Add. Instructions Additional Instructions/Restrictions: *Monitor Temp, Over the counter Motrin or Tylenol as directed/as needed Tylenol every 4 hours and Motrin every 6 hours (as long as your family doctor has told you that you can take it) for fever or pain. and straight to ER if unable to lower temp less than 101.0 after medication given *Warm salt water gargles may help to soothe the throat *Throat Lozenges? *Warm fluids like tea with honey may help to soothe the throat? *Sleep elevated *Humidifier/Vaporizer Your throat swab was sent for culture. Those results are typically sent to your primary care. Be sure to follow up in 2-3 days with your family doctor/primary care physician if no improvement so they can review those result and treat if necessary. If you don?t have a primary care doctor, I recommend you get one but in the mean time, you will have to return to a walk in clinicFollow up IMMEDIATELY for new or worsening symptoms or no Noticeable improvement over the next 48-72 hours. 911 for difficulty breathing or swallowing You were tested for today for COVID19 your test result should be back in the next 24 hours, you may check your results on the [facility] [employer] [facility] Clinical Impressions Clinical Impression: Viral syndrome Stand Alone Forms Stand Alone Forms: Work/School Release Instructions Patient Instructions: DI for Viral Syndrome, DI for Fever (Symptom) -- Adult Print Language Print Language: Egyptian Discharge ED Provider: Colleen [place] [facility] [place] General Stated complaint: 102 fever, headache, Mode of Arrival: Ambulatory Source of Information: Patient Limitations: No Limitations Time Seen by Provider: 06/15/24 10:04 Description of Symptoms (Recalled from Triage Doc. by RN): PATIENT C/O FEVER, HEADACHE, AND SORE THROAT THAT STARTED THIS MORNING HEENT Symptoms (Recalled from RN notes): Yes Resp Symptoms (Recalled from RN notes): No Skin Symptoms (Recalled from RN notes): No MS Symptoms (Recalled from RN notes): No Functional Status (Recalled from RN notes): WNL History of Present Illness Provider Complaint: Patient states that she woke up this morning with sore throat, fever, chills, body aches and over all not feeling well so today she came in to get checked and tested for COVID flu and strep Related Data Home Medications ?Medication ?Instructions ?Recorded ?Confirmed levothyroxine 25 mcg tablet 25 mcg PO DAILY Hypothyroidism 08/30/20 06/15/24 metformin 500 mg tablet 500 mg PO DIRECTED Diabetes 08/30/20 06/15/24 lisinopril 10 mg tablet 10 mg PO DAILY 06/15/24 06/15/24 semaglutide 0.25 mg or 0.5 mg (2 0.25 mg SQ WEEKLY 06/15/24 06/15/24 mg/3 mL) subcutaneous pen injector (Ozempic) Allergies Allergy/AdvReac Type Severity Reaction Status Date / Time amoxicillin [AMOXICILLIN] Allergy Mild Verified 06/20/22 12:46 latex [LATEX] Allergy Mild Verified 06/20/22 12:46 methadone [METHADONE] Allergy Mild Verified 06/20/22 12:46 morphine [MORPHINE] Allergy Mild Verified 06/20/22 12:46 Penicillins [PENICILLINS] Allergy Mild Verified 06/20/22 12:46 Worker's Comp Is this a Worker's Comp case?: No [facility] Disclaimer: The information contained in this section may have been updated after the patient was seen, as this information can be updated by other users. Medical History (Updated 06/15/24 @ 10:20 by Colleen Houston APRN) Breast tumor Migraine Pre-diabetes Hypertension Surgical History (Updated 06/15/24 @ 10:07 by Aaliyah Calderón RN) History of tubal ligation History of tonsillectomy History of hysterectomy History of section History of appendectomy History of thyroidectomy Social History Smoking Status: Unknown if ever smoked alcohol intake: never current occupational status: employed Travel in the last 8 weeks: None household members: children housing: house caffeine: Yes ROS Obtained: Yes All systems reviewed & no additional complaints except as documented and Yes Systems reviewed as appropriate & no additional complaints except as documented Constitutional Constitutional: Reports system reviewed and no additional complaints, except as documented, Reports as per HPI, Reports body ache, Reports chills and Reports fever(s) ENT Ears, Nose, Mouth, and Throat: Reports system reviewed and no additional complaints, except as documented, Reports as per HPI and Reports sore throat Cardiovascular Cardiovascular: Reports system reviewed and no additional complaints, except as documented and Reports as per HPI Respiratory Respiratory: Reports system reviewed and no additional complaints, except as documented and Reports as per HPI Gastrointestinal Gastrointestingal: Reports system reviewed and no additional complaints, except as documented and as per HPI Genitourinary Female Genitourinary: Reports system reviewed and no additional complaints, except as documented and Reports as per HPI Musculoskeletal Musculoskeletal: Reports system reviewed and no additional complaints, except as documented and Reports as per HPI Physical Exam General General appearance: alert and in no apparent distress ENT ENT exam: Present mucous membranes moist Expanded ENT Exam Nose exam: Absent sinus tenderness Throat exam: Present other (Pharyngeal erythema noted ) Respiratory Respiratory exam: Present normal lung sounds bilaterally; Absent respiratory distress or wheezes Cardiovascular Cardiovascular exam: Present regular rate, normal rhythm and tachycardia Neurological Exam Neurological exam: Present alert, oriented X3 and normal gait Medical Decision Making Avni Inquiry Pt receiving controlled substance: No Avni was queried for this patient: No Vital Signs: 06/15/24 09:55 Temperature 99.5 F Temperature Source Oral Pulse Rate [Left Brachial] 122 H Respiratory Rate 20 Blood Pressure [Left Arm] 112/61 Blood Pressure Mean [Left Arm] 78 Blood Pressure Source [Left Arm] Automatic Cuff Blood Pressure Position [Left Arm] Sitting 02 Sat by Pulse Oximetry 97 Oxygen Delivery Method Room Air Lab Data Lab results reviewed: Yes I reviewed the patient's lab results.
[2024-06-15 10:15] LABS: UTC Strep Screen (Rapid) Negative (Negative)
[2024-06-15 10:16] LABS: UTC Influenza A Antigen Negative (Negative); UTC Influenza B Antigen Negative (Negative)
[2024-06-15 10:19] VITALS: BP 112/61; PULSE 122; RESP 20; TEMP 37.5; O2SAT 97
== END 2024-06-15 10:29 | disposition home or self-care (01) ==
PROVIDERS: Emergency Provider Nurse Practitioner; PCP Nurse Practitioner Family
DX: U07.1 COVID-19 (principal); R50.9 Fever, unspecified; R51.9 Headache, unspecified; R07.0 Pain in throat
CPT/HCPCS: 87635; 87804; 87880; 99212; 99214; G0463

== ENCOUNTER 2025-05-23 10:34 | Outpatient (CLI) | payer BC, SELFPAY ==
--- OUTSIDE RECORDS SUMMARY | 2025-05-21 10:00 | XMS_ITS | Encounter Summary ---
Author Organization [facility] Address [address] [place] [address] Care Team Providers Care Dental Service Chief Name Role Phone Isiah May MD Primary Care Provider Reason for Referral * Imaging (Routine) - Authorized Specialty Diagnoses / Procedures Referred By Contac t Referred To Contact Diagnoses Pulmonary nodule Procedures CT Chest wo IV Contrast Isiah May MD [address] [place] [address] Phone: tel: fax: Referral ID Status Reason Start Date Expiration Date V isits Requested Visits Authorized [id number] Authorized 05/21/2025 11/20/2026 1 1 Reason for Visit * Reason Comments Diabetes fu Encounter Details Date Type Department Care Team (Late st Contact Info) Description 05/21/2025 10:00 AM EDT Office Visit [facility] [address] [place] [address] Isiah May MD [address] [place] [address] Type 2 diabetes mellitus without complication, without long-term current use of insulin (Primary Dx); Pulmonary nodule Social History Tobacco Use Types Packs/Day Years Used Date Smoking Tobacco: Never Passive Smoke Exposure: Past Smokeless Tobacco: Never Tobacco Cessation:Counseling Given: Not Answered Comments:Grew up in a house with second hand smoke where multiple people smoked even in the car Alcohol Use Standard Drinks/Week Comments Never 0 (1 standard drink = 0.6 oz pur e alcohol) PHQ-2 Answer Date Recorded Patient Health Questionnaire-2 Score 0 02/03/2025 Housing Stability Vital Sign Answer Fernando e Recorded In the last 12 months, was t here a time when you were not able to pay the mortgage or rent on time? No 03/27/2024 In the last 12 months, how many places have you lived? 1 03/27/2024 In the last 12 months, was t here a time when you did not have a steady place to sleep or slept in a intermediate (including now)? No 03/27/2024 PHQ-9 Answer Date Recorded Patient Health Questionnaire-9 Score 2 02/03/2025 Housing Stability Vital Sign Answer Fernando e Recorded In the last 12 months, was t here a time when you were not able to pay the mortgage or rent on time? No 11/03/2024 In the past 12 months, how m any times have you moved where you were living? 1 11/03/2024 At any time in the past 12 m [facility], were you homeless or living in a intermediate (including now)? No 11/03/2024 Humiliation, Afraid, Rape, and Kick questionnair e Answer Date Recorded Within the last year, have y ou been afraid of your partner or ex-partner? No 05/21/2025 Within the last year, have y ou been humiliated or emotionally abused in other ways by your partner or ex-partner? No Within the last year, have y ou been kicked, hit, slapped, or otherwise physically hurt by your partner or ex-partner? No 05/21/2025 Within the last year, have y ou been raped or forced to have any kind of sexual activity by your partner or ex-partner? No 05/21/2025 Hunger Vital Sign Answer Date Recorded Within the past 12 months, y ou worried that your food would run out before you got the money to buy more. Never true 05/21/20 25 Within the past 12 months, t he food you bought just didn't last and you didn't have money to get more. Never true 05/21/2025 PRAPARE - Transportation Answer Date Re corded In the past 12 months, has l ack of transportation kept you from medical appointments or from getting medications? No 05/07 In the past 12 months, has l ack of transportation kept you from meetings, work, or from getting things needed for daily living? No 05/21/2025 Housing Stability Vital Sign Answer Fernando e Recorded In the last 12 months, was t here a time when you were not able to pay the mortgage or rent on time? No 05/21/2025 In the past 12 months, how m any times have you moved where you were living? 0 05/21/2025 At any time in the past 12 m [facility], were you homeless or living in a intermediate (including now)? No 05/21/2025 Safety and Environment Answer Date Toney rded Do you worry that your child may have been physically abused? No 05/21/2025 Do you worry that your child may have been sexua lly abused? No 05/21/2025 Are there any guns kept in o r around your home or where your child spends time? No 05/21/2025 Guns Unloaded or Locked Away Not on file Utilities Answer Date Recorded In the past 12 months has th e electric, gas, oil, or water company threatened to shut off services in your home? No 05/21/2025 PHQ-2A Answer Date Recorded Patient Health Questionnaire-2 Score 0 08/01/2023 Comments No Sex and Gender Information Value Date Recorded Sex Assigned at Female 04/06/2024 12:36 PM EDT Legal Sex Female 7:41 PM EDT Gender Identity Female 04/06/2024 12:36 PM EDT Sexual Orientation Straight 04/06/2024 12 :36 PM EDT documented as of this encounter Last Filed Vital Signs Vital Sign Reading Time Taken Comments Blood Pressure 120/84 05/21/2025 10:17 AM EDT Pulse 93 05/21/2025 10:17 AM EDT Temperature 36.9 C (98.4 F) 05/21/2025 10:17 AM EDT Respiratory Rate 18 05/21/2025 10:17 AM EDT Oxygen Saturation 98% 05/21/2025 10:17 AM EDT Inhaled Oxygen Concentration - - Weight 87.3 kg (192 lb 7.4 oz) 05/21/2025 10:17 AM EDT Height 165.1 cm (5' 5 ) 05/21/2025 10:17 AM EDT Body Mass Index 32.03 05/21/2025 10:17 AM EDT documented in this encounter Miscellaneous Notes * Progress Notes - Isiah May MD - 05/21/2025 10:00 AM EDT Subjective Patient ID: Krysta Stuart is a 44 y.o. female. Chief Complaint Patient presents with Diabetes fu HPI Follow-up on diabetes. Taking all the medications as prescribed. Reports that she took a break frommetformin recently. The following portions of the chart were reviewed this encounter and updated as appropriate: Tobacco Allergies Meds Problems Med Hx Surg Hx Fam Hx Review of Systems Cardiovascular: Negative Respiratory: Negative Abdomen: Negative Objective Physical Exam Constitutional: No distress, well developed, well nourished, Vitals reviewed and addressed as below Neck: No mass noted Normal thyroid Lymphatics: No cervical, supraclavicular lymphadenopathy Heart-normal S1, S2 without any murmurs, regular rate and rhythm, Extremities non edematous Lungs-clear to auscultation, no added sounds, non labored breathing Abdomen-soft, nontender. Assessment/Plan Type 2 diabetes mellitus: A1c 6.1. She can stop the metformin. We will increase the semaglutide to 0.5 mg weekly. Repeat A1c in 3 months GERD: Symptoms well-controlled on pantoprazole 20 mg tablet daily Hypothyroidism: Last TSH was within normal limits, continue levothyroxine 25 mg tablet daily Obesity: We will increase the semaglutide 2.5 mg weekly Essential hypertension: Blood pressure well-controlled without any medications. Thyroid nodule: Status post left thyroidectomy. Two subcentimeter nodules in the right thyroid gland appearing benign, no need for further follow-up on the same. multiple benign-appearing lymph nodes, the largest measures 1.0 x 0.8 x 0.4 cm. Migraine: Symptoms well-controlled with p.r.n. sumatriptan and Phenergan. Pulmonary nodule: Slight interval increase in the size of the pulmonary nodule, repeat CT scan in the month of July, order placed Status post cholecystectomy: No issues Follow up in 3 months documented in this encounter Plan of Treatment Upcoming Encounters Date Type Department Care Team (Late st Contact Info) Description 05/26/2025 8:45 AM EDT Appointment [facility] [address] [facility] [address] [place] [address] 05/26/2025 9:35 AM EDT Office Visit [facility] [address] [facility] [place] [address] Dominga Goldberg, SUBACUTE NURSE [address] [facility] [address] [place] [address] 08/20/2025 9:20 AM EST Office Visit [facility] [address] [place] [address] Isiah May MD [address] [facility] [address] [place] [id number] Scheduled Orders Name Type Priority Associated Diagnoses Orde r Schedule CT Chest wo IV Contrast Imaging Routine Pulmonary nodule Expected: 05/21/2025 (Approximate), Expires: 11/22/2026 documented as of this encounter Procedures Procedure Name Priority Date/Time Associated Diagnosis Comments POCT GLYCOSYLATED HEMOGLOBIN (HGB A1C) Routine 05/21/2025 10:23 AM EDT Type 2 diabetes mellitus without complication, without long-term current use of insulin documented in this encounter Results * POCT glycosylated hemoglobin (Hb A1C) docked device (05/21/2025 10:23 AM EDT) POCT Hemoglobin A1C 6.1 <5.7% Non-Diabet ic % [facility] Kit Lot Number [id number] [facility] Kit Expiration Date [id number] [facility] Blood Venous blood specimen / Unknown 05/21/2025 10:23 AM EDT Isiah May MD POINT OF CARE TEST ENTE R/EDIT ORDERABLES Final Result [facility] [address] [place] [address] documented in this encounter Visit Diagnoses Diagnosis Type 2 diabetes mellitus without complication, without long-term current use of insulin- Primary Pulmonary nodule Other diseases of lung, not elsewhere classified documented in this encounter Additional Health Concerns Assessment Noted Time PHQ-9 Depression Total Score: 2 02/04/20 25 1:49 PM EDT A fall risk assessment has been complete d for the patient 02/03/2025 1:50 PM EDT A Body Mass Index follow-up plan has been documented for the patient 02/03/2025 2:16 PM EDT documented as of this encounter Care Teams Dental Service Chief Relationship Specialty Start Date End Date Isiah May MD [address] [address] PCP - General Family Medicine 06/04/24 documented as of this encounter
[2025-05-23 22:27] LABS: Coronavirus 19, PCR Not Detected (NotDetected); Influenza A, PCR Not Detected (NotDetected); Influenza B, PCR Not Detected (NotDetected)
--- OUTSIDE RECORDS SUMMARY | 2025-05-25 10:44 | XMS_ITS | Encounter Summary ---
Author Organization [facility] Address [address] [place] [address] Care Team Providers Care Regional Clinical Research Associate Name Role Phone Stefani Toledo APRN Primary Care Provider [phone] Isiah May MD Primary Care Provider Charissa Smith LPN Unavailable Unavailabl e Reason for Visit * Reason Comments Med Refill Encounter Details Date Type Department Care Team (Late st Contact Info) Description 07/20/2021 Refill [facility] [address] [place] [address] Stefani Toledo APRN [address] [place] [address] Type 2 diabetes mellitus without complications (CMS/[facility]) Social History Tobacco Use Types Packs/Day Years Used Date Smoking Tobacco: Never Smokeless Tobacco: Never Alcohol Use Standard Drinks/Week Comments No 0 (1 standard drink = 0.6 oz pure alcohol) Alcoholic Drinks/day: No history of alcohol use PHQ-2 Answer Date Recorded Patient Health Questionnaire-2 Score 0 07/11/2021 Comments Unknown Sex and Gender Information Value Date Recorded Sex Assigned at Female 04/06/2024 12:36 PM EDT Legal Sex Female 7:41 PM EDT Gender Identity Female 04/06/2024 12:36 PM EDT Sexual Orientation Straight 04/06/2024 12 :36 PM EDT COVID-19 Exposure Response Date Recorded In the last month, have you been in contact with someone who was confirmed or suspected to have Coronavirus / COVID-19? No / Unsure 07/21/2021 12:28 PM EDT documented as of this encounter Miscellaneous Notes * Telephone Encounter - Stefani Toledo APRN - 07/24/2021 10:27 AM EDT Approving, but needs appt for additional refills. * Telephone Encounter - Diane Toledo MA - 07/24/2021 8:53 AM EDT Not on current med list. Patient stated that her A1C was elevated and she believes she was suppose to restart. Ok to send? * Telephone Encounter - Destiny Mendez PharmD - 07/22/2021 8:30 AM EDT Refill request does not meet protocol. Sending to clinic triage for further review. Additional info: Last labs questioned if she was on Metformin, please review. documented in this encounter Plan of Treatment Upcoming Encounters Date Type Department Care Team (Late st Contact Info) Description 05/26/2025 8:45 AM EDT Appointment [facility] [place] [address] Annette Wongrickson [facility] [address] [place] [address] 05/26/2025 9:35 AM EDT Office Visit [facility] [address] [facility]nd [place] [address] Dominga Goldberg, RECEIVING CHECKER [address] [facility] Annette Wongrickson [address] [place] [address] 08/20/2025 9:20 AM EST Office Visit [facility] [address] [place] [address] Isiah May MD [address] [place] [address] documented as of this encounter Visit Diagnoses Diagnosis Type 2 diabetes mellitus without complications documented in this encounter Additional Health Concerns Infection Onset Date Last Indicated Resolved Time COVID-19 Rule-Out 10/28/2024 10/28/2024 10/28/2024 1:54 PM EST documented as of this encounter Care Teams Regional Clinical Research Associate Relationship Specialty Start Date End Date Stefani Toledo APRN [address] [place] [address] PCP - General 02/17/21 06/03/24 Isiah May MD [address] [facility] [address] [place] [address] PCP - General Family Medicine 06/04/24 Charissa Smith, TERRA [employer] [facility] TCM Nurse 11/06/24 12/06/24 documented as of this encounter
--- OUTSIDE RECORDS SUMMARY | 2025-05-25 10:44 | XMS_ITS | Encounter Summary ---
Author Organization [facility] Address [address] [place] [address] Care Team Providers Care Import/Export Specialist Name Role Phone Stefani Toledo APRN Primary Care Provider [phone] Isiah May MD Primary Care Provider Charissa Smith LPN Unavailable Unavailabl e Encounter Details Date Type Department Care Team (Late st Contact Info) Description 12/28/2019 Orders Only External Location [address] [place] [id number] Stefani Toledo APRN [address] [place] [address] Social History Tobacco Use Types Packs/Day Years Used Date Smoking Tobacco: Never Assessed Comments Unknown Sex and Gender Information Value Date Recorded Sex Assigned at Female 04/06/2024 12:36 PM EDT Legal Sex Female 7:41 PM EDT Gender Identity Female 04/06/2024 12:36 PM EDT Sexual Orientation Straight 04/06/2024 12 :36 PM EDT documented as of this encounter Plan of Treatment Upcoming Encounters Date Type Department Care Team (Late st Contact Info) Description 05/26/2025 8:45 AM EDT Appointment [facility] [place] [address] Annette Carlin [address] [address] 05/26/2025 9:35 AM EDT Office Visit [facility] [address] [place] [address] Dominga Goldberg, SURGICAL FORCEPS FABRICATOR [address] [place] [address] 08/20/2025 9:20 AM EST Office Visit [facility] [address] [place] [address] Isiah May MD [address] [facility] [address] [place] [address] documented as of this encounter Procedures Procedure Name Priority Date/Time Associated Diagnosis Comments XR THORACIC OUTSIDE IMAGES 12/28/2019 12:04 PM EDT documented in this encounter Results * XR THORACIC OUTSIDE IMAGES (12/28/2019 12:04 PM EDT) Anatomical Region Laterality Modality Radiographic Sobia ging 12/28/2019 12:0 4 PM EDT us Stefani Toledo SURGICAL FORCEPS FABRICATOR IMG XR PROCEDURES Final Resul t documented in this encounter Visit Diagnoses Not on filedocumented in this encounter Additional Health Concerns Infection Onset Date Last Indicated Resolved Time COVID-19 Rule-Out 10/28/2024 10/28/2024 10/28/2024 1:54 PM EST documented as of this encounter Care Teams Import/Export Specialist Relationship Specialty Start Date End Date Stefani Toledo, SURGICAL FORCEPS FABRICATOR [address] [place] [address] PCP - General 02/17/21 06/03/24 Isiah May MD [address] [facility] [address] [place] [address] PCP - General Family Medicine 06/04/24 Charissa Smith LPN [facility] TCM Nurse 11/06/24 12/06/24 documented as of this encounter
--- OUTSIDE RECORDS SUMMARY | 2025-05-25 10:45 | XMS_ITS | Encounter Summary ---
Author Organization [facility] Address [address] [place] [address] Care Team Providers Care Tank Erector Name Role Phone Isiah May MD Primary Care Provider Encounter Details Date Type Department Care Team (Latest Contact Info) Description 05/21/2025 Travel Social History Tobacco Use Types Packs/Day Years Used Date Smoking Tobacco: Never Passive Smoke Exposure: Past Smokeless Tobacco: Never Comments:Grew up in a house with second [...] place to sleep or slept in a fdc (including now)? No 03/27/2024 PHQ-9 Answer Date [...] any time in the past 12 m [facility], were you homeless or living in a fdc (including now)? No 11/03/2024 Humiliation, Afraid, Rape, [...] money to buy more. Never true 05/21/20 Within the past 12 months, t he [...] any time in the past 12 m [facility], were you homeless or living in a fdc (including now)? No 05/21/2025 Safety and Environment [...] Info) Description 05/26/2025 8:45 AM EDT Appointment [facility] [place] [address] Annette Carlin [facility] [address] [place] [address] 05/26/2025 9:35 AM EDT Office Visit [facility] [address] [facility] [place] [address] Dominga Goldberg, BLUEPRINT MACHINE OPERATOR [address] [facility] Annette Carlin [facility] [address] [place] [address] 08/20/2025 9:20 AM EST Office Visit [facility] [address] [place] [address] Isiah May MD [address] [facility] [address] [place] [address] documented as of this encounter Visit Diagnoses Not on filedocumented in this encounter Additional Health Concerns Assessment Noted Time PHQ-9 Depression Total Score: 2 02/04/20 25 1:49 PM EDT A fall risk assessment has been complete d for the patient 02/03/2025 1:50 PM EDT A Body Mass Index follow-up plan has been documented for the patient 02/03/2025 2:16 PM EDT documented as of this encounter Care Teams Tank Erector Relationship Specialty Start Date End Date Isiah May MD [address] [facility] [address] [place] [address] PCP - General Family Medicine 06/04/24 documented as of this encounter
--- OUTSIDE RECORDS SUMMARY | 2025-05-25 10:45 | XMS_ITS | Encounter Summary ---
Author Organization [facility] Address [address] [place] [address] Care Team Providers Care Information Consultant Name Role Phone Stefani Toledo APRN Primary Care Provider [phone] Isiah May MD Primary Care Provider Charissa Smith LPN Unavailable Unavailabl e Encounter Details Date Type Department Care Team (Late st Contact Info) Description 08/02/2022 Orders Only External Location [address] [place] [address] Dominga Levine, SCIENTOLOGIST [address] [place] [address] Social History Tobacco Use Types Packs/Day Years Used Date Smoking Tobacco: Never Smokeless Tobacco: Never Alcohol Use Standard Drinks/Week Comments No 0 (1 standard drink = 0.6 oz pure alcohol) Alcoholic Drinks/day: No history of alcohol use PHQ-2 Answer Date Recorded Patient Health Questionnaire-2 Score 0 08/02/2022 Comments No Sex and Gender Information Value Date Recorded Sex Assigned at Female 04/06/2024 12:36 PM EDT Legal Sex Female 7:41 PM EDT Gender Identity Female 04/06/2024 12:36 PM EDT Sexual Orientation Straight 04/06/2024 12 :36 PM EDT COVID-19 Exposure Response Date Recorded In the last 10 days, have yo u been in contact with someone who was confirmed or suspected to have Coronavirus/COVID-19? No / Unsure 08/02/2022 8:20 AM EDT documented as of this encounter Functional Status * Over the past 2 weeks, how often have you been bothered by any of the following problems? Question Answer Date of Assessment Author Little interest or pleasure in doing things Not at all 08/02/2022 8:34 AM EDT Sarina Torres Feeling down, depressed, or hopeless Not at all 07/08 8:34 AM EDT Sarina Torres Patient Health Questionnaire-2 Score 0 07/08 8:34 AM EDT Sarina Torres * Calculated C-SSRS Risk Score (Lifetime/Recent) Answer Date of Assessment Author No Risk Indicated 08/02/2022 8:34 AM EDT Sarina Torres * Question Answer Date of Assessment Author 1. Wish to be (Past 1 Month) No 022 8:34 AM EDT Sarina Torres 2. Non-Specific Active Suici kana Thoughts (Past 1 Month) No 08/02/2022 8:34 AM EDT Sarina Torres 6. Suicidal Behavior (Lifetime) No 8:34 AM EDT Sarina Torres documented as of this encounter Plan of Treatment Upcoming Encounters Date Type Department Care Team (Late st Contact Info) Description 05/26/2025 8:45 AM EDT Appointment [facility] [place] [address] Annette Carlin [facility] [address] [place] [address] 05/26/2025 9:35 AM EDT Office Visit [facility] [address] [facility] [place] [address] Dominga Goldberg, SCIENTOLOGIST [address] [facility] Annette [address] [address] 08/20/2025 9:20 AM EST Office Visit [facility] [address] [place] [address] Isiah May MD [address] [facility] [address] [place] [address] documented as of this encounter Procedures Procedure Name Priority Date/Time Associated Diagnosis Comments XR THORACIC OUTSIDE IMAGES 08/02/2022 9:05 AM EDT documented in this encounter Results * XR THORACIC OUTSIDE IMAGES (08/02/2022 9:05 AM EDT) Anatomical Region Laterality Modality Radiographic Sobia ging 08/02/2022 9:05 AM EDT Dominga Levine APRN IMG XR PROCEDURES Final R esult documented in this encounter Visit Diagnoses Not on filedocumented in this encounter Additional Health Concerns Infection Onset Date Last Indicated Resolved Time COVID-19 Rule-Out 10/28/2024 10/28/2024 10/28/2024 1:54 PM EST Assessment Noted Time A fall risk assessment has been complete d for the patient 08/02/2022 8:34 AM EDT documented as of this encounter Care Teams Information Consultant Relationship Specialty Start Date End Date Stefani Toledo APRN [address] [place] [id number] PCP - General 02/17/21 06/03/24 Isiah May MD [address] [facility] [address] [place] [address] PCP - General Family Medicine 06/04/24 Charissa Smith LPN [facility] TCM Nurse 11/06/24 12/06/24 documented as of this encounter
--- OUTSIDE RECORDS SUMMARY | 2025-05-25 10:45 | XMS_ITS | Clinical Summary ---
Author Organization [facility] Address [address] [place] [address] Care Team Providers Care District Representative Name Role Phone Isiah May MD Primary Care Provider Allergies Active Allergy Reactions Criticality Noted Date Comments Piper Anaphylaxis High 08/12/2024 Black pepper entirely Latex Rash High 08/12/2024 Rash and Blisters Morphine Anaphylaxis High 03/27/2024 Penicillins Rash Low 09/11/2017 Reaction as a child Luckey Rash Low 11/20/2024 Topiramate Other - please docum ent in the comment field Low 03/05/2024 Foggy headed, confusion Medications * This document contains information received from the source organization and may not represent a complete record from that organization. Multiple Vitamin (multivitamin) tablet Take 1 tablet by mouth every morning. Active ascorbic acid (Vitamin C) 100 MG tablet Take 1 tablet by mouth every morning. Active Nutritional Supplements (VITAMIN D BOOSTER PO) Take 1,000 Units by mouth every morning. Active Zinc 100 MG tablet Take 1 tablet by mouth every morning. Active SUMAtriptan (Imitrex) 50 MG tabletIndications :Other migraine without status migrainosus, not intractable Take 1 tablet (50 mg) by mouth 1 (one) time if needed for migraine. May repeat after 2 hours. 27 tablet 3 05/15/ 024 Active EPINEPHrine (Epipen) 0.3 MG/0.3ML injection syringe Inject 0.3 mL (0.3 mg) into the muscle 1 (one) time if needed for anaphylaxis for up to 1 dose. Inject into upper leg. Call 911 after use. 0.3 mL Active levothyroxine (Synthroid, Levoxyl) 25 MCG tabletIndications :Subclinical hypothyroidism Take 1 tablet (25 mcg) by mouth 1 (one) time each day. 90 tablet 3 Active metFORMIN XR (Glucophage-XR) 500 MG 24 hr tabletIndications :Type 2 diabetes mellitus without complications TAKE 1 TABLET BY MOUTH EVERY DAY WITH DINNER. DO NOT CRUSH, CHEW, OR SPLIT 90 tablet 3 Active cholecalciferol (Vitamin D3) 25 MCG (1000 UT) tablet Take 1 tablet by mouth daily. Active ibuprofen 600 MG tablet Take 1 tablet by mouth every 6 hours as needed for mild pain. 30 tablet Active acetaminophen (Tylenol) 500 MG tablet Take 1 tablet by mouth every 6 hours as needed (pain). 30 tablet Active pantoprazole (ProtoNix) 20 MG EC tablet Take 1 tablet by mouth daily. Do not crush, chew, or split. 30 tablet 11 025 2025 Active semaglutide (Ozempic, 0.25 or 0.5 MG/DOSE,) 2 MG/1.5ML solution pen-injector inj. pen Inject 0.375 mL under the skin 1 time per week. 1 each 1 2024 Active Ozempic, 0.25 or 0.5 MG/DOSE, 2 MG/3ML solution pen-injector inject 0.5 mg under the skin 1 time per week. 2024 Discontinued scopolamine (Transderm-Scop) 1 MG/3DAYS patch [address] 1 patch on the skin every 3rd day as needed (nausea) over 72 hours. 10 patch 025 2024 Active Problems Problem Noted Date Diagnosed Date H. pylori infection 11/20/2024 Intractable abdominal pain 11/02/2024 Epigastric pain 10/29/2024 Intractable vomiting with nausea 10/27/2024 Prediabetes 07/11/2021 Elevated liver enzymes 12/27/2020 Benign essential hypertension 06/14/2020 Subclinical hypothyroidism 06/14/2020 Hepatic steatosis 05/30/2020 Atypical lobular hyperplasia (ALH) of breast Thyroid nodule 04/29/2019 Overview (07/11/2021): Nontoxic single thyroid nodule Resolved Problems Problem Noted Date Diagnosed Date Resolved Date Acalculous cholecystitis 12/15/202408/2025 Diabetes mellitus, type 2 06/14/2020 Fever blister 05/10/2020 02/22/2023 Anxiety and depression 03/25/201902/22 Encounters Date Type Department Care Team Description 05/21/2025 10:00 AM EDT Office Visit [facility] [address] [place] [address] Isiah May MD Type 2 diabetes mellitus without complication, without long-term current use of insulin (Primary Dx); Pulmonary nodule 05/21/2025 Travel 04/08/2025 Telephone [facility] [address] [address] Lauryn Edward APRN 02/25/2025 12:40 PM EDT Office Visit [facility] [address] [place] [address] Isiah May MD Type 2 diabetes mellitus without complication, without long-term current use of insulin (Primary Dx); Benign essential hypertension; Subclinical hypothyroidism; Obesity (BMI 30.0-34.9); Epigastric pain; Pulmonary nodule 02/25/2025 Travel from Last 3 Months Immunizations Immunization Administration Dates Next Due DTaP, Unspecified 04/27/1983, 0,12/24/1979,04/30 Hep A, Unspecified 08/14/2018 Influenza, Unspecified 06/19/2018 Influenza, injectable, quadr ivalent, preservative free 08/01/2023,08/02/2022,07/11/2021,08/02,07/21/2019 Influenza, seasonal, injecta ble, preservative free 08/14/2024 MMR 08/03/2019,06/18/1990,07/09/1980 Pneumococcal 20-bong Conj Vaccine 08/14/2024 Pneumococcal Polysaccharide PPV23 07/11/2021 Polio, Unspecified 04/27/1983, 1,12/24/1979,04/30 Tdap 08/03/2019,04/01/2007,02/05/1993 Family History Medical History Relation Name Comments Alcohol abuse Brother 1 Christopher Hurst Hypertension Brother 1 Christopher Hurst Alcohol abuse Brother 2 Don Hurst Hypertension Daughter 1 Marshal Stuart Hypertension Daughter 2 Hope Stuart Hypertension Daughter 3 Alva Stuart Anesthesia problems Daughter 4 delayed emergence Alcohol abuse Father Dougie Hurst COPD Father Dougie Hurst Cardiac disorder Father Dougie Hurst Cirrhosis Father Dougie Hurst Heart attack Father Dougie Hurst Hypertension Father Dougie Hurst Alcohol abuse Father's Brother Both of his brothers Alcohol abuse Father's Sister All three sisters Alcohol abuse Mother Richard Stronghurst Lasalle Anesthesia problems Mother Richard Stronghurst [place] d elayed emergence Cervical cancer Mother Richard Jorge Isaías Famil y history of malignant neoplasm of cervix Heart attack Mother Richard Jorge Lasalle Hypertension Mother Richard Jorge Isaías Other cancer Mother Richard Stronghurst [place] Thyroid cancer Mother Richard Jorge Leechie Family history of malignant neoplasm of thyroid Uterine cancer Mother Richard Jorge Lasalle Alcohol abuse Mother's Brother All three of he r brothers Breast cancer Other maternal great aunt Alcohol abuse Paternal Grandmother Jacquelyn Ciara Dunbarmael Diabetes Paternal Grandmother Jacquelyn Ciara Martinez Cervical cancer Sister 1 Family histo ry of malignant neoplasm of cervix Alcohol abuse Sister 2 Yoly Rockwell Hypertension Sister 2 Yoly Rockwell Malig Hyperthermia Neg Hx Relation Name Status Comments Brother 1 Christopher Hurst Brother 2 Don Hurst Daughter 1 Marshal Stuart Alive Daughter 2 Hope Stuart Alive Daughter 3 Alva Stuart Alive Daughter 4 Alive Father Algtaylor Hurst Father's Brother Both of his brothers Father's Sister All three sisters Mother Richard Jorge Leechie Mother's Brother All three of her brothers Other Paternal Grandmother Jacquelyn Martinez Sister 1 Sister 2 Yoly Rockwell Social History Tobacco Use Types Packs/Day Years [...] any time in the past [facility], were you homeless or living in [...] any time in the past 12 m [facility], were you homeless or living in [...] Orientation Straight 04/06/2024 12 :36 PM EDT Last Filed Vital Signs Vital Sign Reading [...] Mass Index 32.03 05/21/2025 10:17 AM EDT Plan of Treatment Upcoming Encounters Date Type Department Care Team (Late st Contact Info) Description 05/26/2025 8:45 AM EDT Appointment [facility] [place] [address] [address] [facility] [address] [place] [address] 05/26/2025 9:35 AM EDT Office Visit [facility] Breast [facility] Center [address] [facility]nd [place] [address] Dominga Goldberg, ENVIRONMENTAL HEALTH TECHNICIAN [address] [facility] Annet[address] Carlin [facility] [address] [place] [address] 08/20/2025 9:20 AM EST Office Visit [facility] [address] [place] [address] Isiah May MD [address] [facility] [address] [place] [address] Health Maintenance Due Date Last Done Comments [id number] Vaccine (#1) 12/24/1983 Diabetes: Dental Exam 1988 [facility]-Hepatitis B Vaccines (1 of 3 - 19+ 3-dose series) 1997 [facility]-Hepatitis A Vaccines (2 of 2 - Risk 2-dose series) 02/11/2019 08/14/2018 CT Colonography 12/24/2023 Colonoscopy 12/24/2023 FIT-DNA 12/24/2023 FIT 12/24/2023 FOBT 12/24/2023 Sigmoidoscopy 12/24/2023 [facility]-Influenza Vaccine (#1) 06/07/202508/14, 08/01/2023, 08/02/2022, Additional history exists [facility]-Diabetes: Hemoglobin A1C 11/18/2025 05/21/2025, 12/11/2024, 08/21/2024, Additional history exists [facility]- SDOH Screenings 11/21/2025 [facility]-Adult SDOH Screenings 11/21/2025 05/21/2025 [facility]-Infant/Child/Adol SDOH Screenings 11/21/2025 05/21/2025 [facility]-Depression Screening 02/03/2026 02/03/2025, 01/07 [facility]-Zoster Vaccines (1 of 2) 2028 [facility]-DTaP,Tdap,and Td Vaccines (8 - Td or Tdap) 08/03/2029 08/03/2019, 04/01/2007, 02/05/1993, Additional history exists [facility]-Colorectal Cancer Screening 11/07/2029 Postponed from 12/24/2023 (Patient Refused) [facility]-IPV Vaccines Aged Out 04/27/1983, 02/1981, 12/24/1979, Additional history exists No longer eligible based on patient's age to complete this topic [facility]-Cervical Cancer Screening Discontinued [facility]-HPV/Cotest Discontinued 04/16/2019 [facility]-Pap Smear Discontinued 04/16/2019 [facility]-Pneumococcal Vaccine: Pediatrics (0 to 5 Years) and At-Risk Patients (6 to 49 Years) Completed 08/14/2024, 07/11/2021 [facility]-HIV Screening Completed 11/02/2024, , 03/06/2022 [facility]-Hepatitis C Screening Completed 2024, 04/14/2023, 03/06/2022, Additional history exists [facility]-Obesity Intervention Completed 025, 01/26/2025, 12/15/2024, Additional history exists HPV Vaccines Aged Out No longer eligi ble based on patient's age to complete this topic [facility]-HIB Vaccines Aged Out No longer e ligible based on patient's age to complete this topic [facility]-Rotavirus Vaccines Aged Out No lo nger eligible based on patient's age to complete this topic Medical Devices Implanted Type Area Aquatics Instructor Device Identifier Shelf Expiration Date Model / Serial / Lot Clip Clip Bilateral: Breast Procedures Procedure Name Priority Date/Time Associated Diagnosis Comments POCT GLYCOSYLATED HEMOGLOBIN (HGB A1C) Routine 05/21/2025 10:23 AM EDT Type 2 diabetes mellitus without complication, without long-term current use of insulin HEPATITIS C ANTIBODY - ED W/REFLEX TO HCV QUANT PCR STAT 11/02/2024 1:17 PM EST ED HIV 1/2 ANTIBODY/ANTIGEN SCREEN WITH REFLEX TO HIV I/II DIFFERENTIATION STAT 11/02/2024 1:17 PM EST CYTO DATA CONVERSION Routine 04/16/2019 12:00 AM EDT from Last 3 Months or Most Recently Relevant to Health Maintenance Results * POCT glycosylated hemoglobin (Hb A1C) docked device (05/21/2025 10:23 AM EDT) POCT Hemoglobin A1C 6.1 <5.7% Non-Diabet ic % [facility] Kit Lot Number 216 [facility] Kit Expiration Date [id number] Convrrt LAB Blood Venous blood specimen / Unknown 05/21/2025 10:23 AM EDT Isiah May MD POINT OF CARE TEST ENTE R/EDIT ORDERABLES Final Result [facility] [address] [place] [id number] * ED HIV 1/2 Antibody/Antigen Screen w/Reflex to HIV 1/2 Differentiation (11/02/2024 1:17 PM EST) HIV 1 & 2 Antibody/Antigen Screen Non Reactive Non Reactive 11/02/2024 1:58 PM EST Con[facility] LAB Comment:Screening for HIV 1 & 2 antibodies, and P24 antigen is NONREACTIVE. No confirmatory testing is required. Blood Venous blood specimen / Unknown Venipuncture / Unknown 11/02/2024 1:17 PM EST 11/02/2024 1:23 PM EST us Aebl Cleaning MD LAB BLOOD ORDERABLES Final Resul t Performing Organization Address City/[facility] Co de Phone Number HEALTHCARE LAB [address] [place] [address] * Hepatitis C Antibody - ED (11/02/2024 1:17 PM EST) Hepatitis C Antibody Negative Negative 11/02/2024 1:54 PM EST [facility] Blood Venous blood specimen / Unknown Venipuncture / Unknown 11/02/2024 1:17 PM EST 11/02/2024 1:23 PM EST us Abel Cleaning MD LAB BLOOD ORDERABLES Final Resul t Performing Organization Address [facility] Co de Phone Number HEALTHCARE LAB [address] [place] [address] * Cytology (04/16/2019 12:00 AM EDT) 04/16/2019 04/16/2019 10: 49 AM EDT Narrative SUNQUEST - 04/17/2019 2:25 PM EDT [facility] MR #: [id number] [place] [address] 1980 (Age: 38) FW Collect Date: 04/16/2019 00:00 Receipt Date: 04/16/2019 10:49 Page 1 DEPARTMENT OF PATHOLOGY AND LABORATORY MEDICINE CYTOPATHOLOGY REPORT Email: [email or web address] ATTENDING MD/Practitioner: Rafael Camargo MD Service: ENT Location: [facility] OTHER MD(S): Vaibhav Aguilar M.D. Reported: 04/17/2019 14:25 Collected: 04/16/2019 00:00 DIAGNOSIS A. LEFT THYROID NODULE, ULTRASOUND GUIDED FNA (SMEARS AND CONCENTRATE): - ATYPIA OF UNDETERMINED SIGNIFICANCE, SEE COMMENT. B. LEFT SUBMANDIBULAR LYMPH NODE, ULTRASOUND GUIDED FNA (SMEARS AND CONCENTRATE): - LYMHOID TISSUE WITH A SPECTRUM OF LYMPHOCYTES; NO METASTATIC CARCINOMA IDENTIFIED. COMMENT The smears vary from areas with abundant colloid to a single pass that contains less colloid and is more cellular. This pass shows both mild cytologic and architectural atypia including micro and macrofollicular formations and few follicular groups with nuclear crowding and overlapping and focal nuclear enlargement. For this reason, the aspirate is placed into the category of atypia of undetermined significance ([place] category III). Clinical follow up with re aspiration after an appropriate time interval is recommended. Electronically Signed Out TODD Mason (ASCP) Mamta Hong MD PROCEDURES/ADDENDA GROSS DESCRIPTION: A: 3 ml's bloody needle rinse fluid processed as ThinPrep for complete evaluation of sample. B: 3 ml's bloody needle rinse fluid processed as ThinPrep for complete evaluation of sample. CLINICAL INFORMATION: CLINICAL DIAGNOSIS A: Left thyroid nodule slightly over 1 cm nodule with calcification, TR 5 lesion on imaging. FNA performed by: Dr. Molina Number of sticks: 5 Immediate evaluation performed by: Dr. Hong Evaluation episode # 1: Blood 2: Colloid and few follicular groups. 3: Colloid 4-5: Colloid and few follicular groups. B: Left submandibular lymph node FNA performed by: Dr. Molina Number of sticks: 3 Immediate evaluation performed by: Dr. Hong Evaluation episode # 1-2: Lymphs present 3: Hemodilute lymphoid tissue. This service has been rendered in part by a resident. A pathologist has personally reviewed the slides/tissue and has rendered and is responsible for the diagnosis that appears on the report. 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 A pathologist has performed and is responsible for the reported pathologic evaluation. us Srinath Camargo MD LAB PATHOLOGY ORDERABLES Final R esult [facility]QUEST from Last 3 Months or Most Recently Relevant to Health Maintenance Insurance ANTH Advance Directives * Full Code (Latest Code Status on File) Date Activated Date Inactivated Comments 11/02/2024 6:18 PM 11/05/2024 7:26 PM Question Answer Comments Patient has decision-making capacity? Yes * Full Code Date Activated Date Inactivated Comments 10/27/2024 7:50 PM 10/31/2024 8:52 PM Question Answer Comments Patient has decision-making capacity? Yes Care Teams District Representative Relationship Specialty [place] [address] [place] [phone] PCP - General Family Medicine 06/04/24
--- OUTSIDE RECORDS SUMMARY | 2025-05-25 10:45 | XMS_ITS | Encounter Summary ---
Author Organization [facility] Address [address] [place] [address] Care Team Providers Care Guidance Adviser Name Role Phone Isiah May MD Primary Care Provider Encounter Details Date Type Department Care Team (Late st Contact Info) Description 04/08/2025 Telephone [facility] [address] [place] [address] Lauryn Edward, MICHAEL [address] [facility] [address] [place] [address] Social History Tobacco Use Types Packs/Day Years Used Date Smoking Tobacco: Never Passive Smoke Exposure: Past Smokeless Tobacco: Never Comments:Grew up in a house with second hand smoke where multiple people smoked even in the car Alcohol Use Standard Drinks/Week Comments Never 0 (1 standard drink = 0.6 oz pur e alcohol) Humiliation, Afraid, Rape, and Kick questionnair e Answer Date Recorded Within the last year, have y ou been afraid of your partner or ex-partner? No 11/03/2024 Within the last year, have y ou been humiliated or emotionally abused in other ways by your partner or ex-partner? No Within the last year, have y ou been kicked, hit, slapped, or otherwise physically hurt by your partner or ex-partner? No 11/03/2024 Within the last year, have y ou been raped or forced to have any kind of sexual activity by your partner or ex-partner? No 11/03/2024 PHQ-2 Answer Date Recorded Patient Health Questionnaire-2 Score 0 02/03/2025 Hunger Vital Sign Answer Date Recorded Within the past 12 months, y ou worried that your food would run out before you got the money to buy more. Never true 11/03/19 25 Within the past 12 months, t he food you bought just didn't last and you didn't have money to get more. Never true 11/03/2024 PRAPARE - Transportation Answer Date Re corded In the past 12 months, has l ack of transportation kept you from medical appointments or from getting medications? No 10/08 In the past 12 months, has l ack of transportation kept you from meetings, work, or from getting things needed for daily living? No 11/03/2024 Housing Stability Vital Sign Answer Fernando e [...] any time in the past 12 m [facility], were you homeless or living in a fdc (including now)? No 11/03/2024 Safety and Environment Answer Date Toney rded Do you worry that your child may have been physically abused? No 03/27/2024 Do you worry that your child may have been sexua lly abused? No 03/27/2024 Are there any guns kept in o r around your home or where your child spends time? No 03/27/2024 Guns Unloaded or Locked Away Not on file Utilities Answer Date Recorded In the past 12 months has th e electric, gas, oil, or water company threatened to shut off services in your home? No 11/03/2024 PHQ-2A Answer Date Recorded Patient Health Questionnaire-2 Score 0 08/01/2023 Comments No Sex and Gender Information Value Date Recorded Sex Assigned at Female 04/06/2024 12:36 PM EDT Legal Sex Female 7:41 PM EDT Gender Identity Female 04/06/2024 12:36 PM EDT Sexual Orientation Straight 04/06/2024 12 :36 PM EDT documented as of this encounter Miscellaneous Notes * Telephone Encounter - Merary Brock - 04/08/2025 9:56 AM EDT Pt called to r/s her appointment. Please return call [phone] documented in this encounter Plan of Treatment Upcoming Encounters Date Type Department Care Team (Late st Contact Info) Description 05/26/2025 8:45 AM EDT Appointment [facility] Breast Care Center Comprehensive Breast Care Center [place] [address] [address] [facility] [address] [place] [address] 05/26/2025 9:35 AM EDT Office Visit [facility] Breast Care Center [address] [facility]nd [place] [address] Dominga Goldberg, POLICY WRITER SALES [address] [facility] [address] [place] [address] 08/20/2025 9:20 AM EST Office Visit [facility] [address] [place] [address] Isiah May MD [address] [place] [address] documented as of this encounter [...] documented as of this encounter Care Teams Guidance Adviser Relationship Specialty Start Date End Date Isiah May MD [address] [address] PCP - General Family Medicine 06/04/24 documented as of this encounter
--- OUTSIDE RECORDS SUMMARY | 2025-05-25 10:45 | XMS_ITS | Encounter Summary ---
Author Organization Healthcare Address [address] [place] [address] Care Team Providers Care Leaf Tier Name Role Phone Stefani Toledo APRN Primary Care Provider [phone] Isiah May MD Primary Care Provider Charissa Smith LPN Unavailable Unavailabl e Reason for Visit * Reason Comments Med Change Request Encounter Details Date Type Department Care Team (Late st Contact Info) Description 05/31/2022 Refill [facility] [address] [place] [address] Isabella Vásquez, MICHAEL [address] [facility] [place] [address] [place] [address] Social History Tobacco Use Types Packs/Day Years Used Date Smoking Tobacco: Never Smokeless Tobacco: Never Alcohol Use Standard Drinks/Week Comments No 0 (1 standard drink = 0.6 oz pure alcohol) Alcoholic Drinks/day: No history of alcohol use PHQ-2 Answer Date Recorded Patient Health Questionnaire-2 Score 0 05/01/2022 Comments No Sex and Gender Information Value [...] suspected to have Coronavirus/COVID-19? No / Unsure 05/01/2022 8:32 AM EDT documented as of this encounter Miscellaneous Notes * Telephone Encounter - Higinio Kevin - 05/31/2022 1:09 PM EDT Per protocol, 1 medication(s), amitriptyline, has been approved for 90 day supply with 0 refill(s).The medication refill request(s) has been sent to [facility]. documented in this encounter Plan of Treatment Upcoming Encounters Date Type Department Care Team (Late st Contact Info) Description 05/26/2025 8:45 AM EDT Appointment [facility] Breast Care Center Comprehensive Breast Care Center [facility] [address] [facility] [address] [place] [address] 05/26/2025 9:35 AM EDT Office Visit [facility] Breast Care [place] [address] [facility]nd [place] [address] Dominga Goldberg, HEALTH INSURANCE SPECIALIST [address] [facility] Annette Carlin [facility] [address] [place] [address] 08/20/2025 9:20 AM EST Office Visit [facility] [address] [place] [address] Isiah May MD [address] [facility] [address] [place] [address] documented as of this encounter Visit Diagnoses Not on filedocumented in this encounter Additional Health Concerns Infection Onset Date Last Indicated Resolved Time COVID-19 Rule-Out 10/28/2024 10/28/2024 10/28/2024 1:54 PM EST Assessment Noted Time A fall risk assessment has been complete d for the patient 05/01/2022 8:50 AM EDT documented as of this encounter Care Teams Leaf Tier Relationship Specialty Start Date End Date Stefani Toledo APRN [address] [place] [address] PCP - General 02/17/21 06/03/24 [place] [address] [place] [address] PCP - General Family Medicine 06/04/24 Charissa Smith, [facility] TCM Nurse 11/06/24 12/06/24 documented as of this encounter
--- OUTSIDE RECORDS SUMMARY | 2025-05-25 10:45 | XMS_ITS | Encounter Summary ---
Author Organization Healthcare Address [address] [place] [address] Care Team Providers Care Fertilizing Machine Operator Name Role Phone Stefani Toledo APRN Primary Care Provider [phone] Isiah May MD Primary Care Provider Charissa Smith LPN Unavailable Unavailabl e Encounter Details Date Type Department Care Team (Late st Contact Info) Description 09/20/2022 Orders Only External Location [address] [place] [id number] Dominga Levine, PROMOTIONAL ADVERTISING ASSISTANT [address] [place] [address] Social History Tobacco Use Types [...] [facility] [address] [place] [address] 05/26/2025 9:35 AM EDT Office Visit [facility] [address] [place] [address] Dominga Goldberg APRN [address] [facility] [address] [facility] [address] [place] [address] 08/20/2025 9:20 AM EST Office Visit [facility] [address] [place] [address] Isiah May MD [address] [facility] [address] [place] [address] documented as of this encounter Procedures Procedure Name Priority Date/Time Associated Diagnosis Comments CT THORACIC OUTSIDE IMAGES 09/20/2022 10:19 AM EST documented in this encounter Results * CT THORACIC OUTSIDE IMAGES (09/20/2022 10:19 AM EST) Anatomical Region Laterality Modality Computed Tomogra phy 09/20/2022 10:1 9 AM EST Dominga Levine APRN IM CT PROCEDURES Final R esult documented in this encounter Visit Diagnoses Not on filedocumented in this encounter Additional Health Concerns Infection Onset Date Last Indicated Resolved Time COVID-19 Rule-Out 10/28/2024 10/28/2024 10/28/2024 1:54 PM EST Assessment Noted Time A fall risk assessment has been complete d for the patient 08/02/2022 8:34 AM EDT documented as of this encounter Care Teams Fertilizing Machine Operator Relationship Specialty Start Date End Date Stefani Toledo APRN [address] [place] [address] PCP - General 02/17/21 06/03/24 Isiah May MD [address] [place] [address] PCP - General Family Medicine 06/04/24 Charissa Smith LPN [facility] TCM Nurse 11/06/24 12/06/24 documented as of this encounter
== END 2025-05-23 23:59 | disposition home or self-care (01) ==
LOC: LAB.DROPOF 05-25 10:39
PROVIDERS: PCP Nurse Practitioner Family; Visit Provider Nurse Practitioner Family
DX: J06.9 Acute upper respiratory infection, unspecified (principal)
CPT/HCPCS: 87631